=== PATIENT | female | born 1955 | race Caucasian/White ===

== ENCOUNTER 2017-02-22 06:30 | Inpatient (IN) | payer BC ==
--- NOTE | ~2017-02-22 | IDS ---
Interim Discharge Summary [facility] [address] [place]. [address] NAME: ELEAZAR TRUJILLO : 59 STATUS : ADM IN [facility]#: [id number] AGE: 61 ADM/REG DATE : 02/22/17 MR#: [id number] REPORT SERV DATE: 03/08/17 DICTATED BY: JR. OLIVARES WILLIAM JOHN DATE: 03/07/17 REPORT STATUS : Draft TRANSCRIBED BY: PAUL DATE: 03/07/17 ADMISSION DATE: 02/22/2017 DISCHARGE DATE: I have taken care of this patient for the time period from 03/05/2017 through 03/07/2017, but will attempt to recollect events up to this point. WORKING DIAGNOSES: 1. Status post brief pulseless electrical activity on 03/01/2017 with return of spontaneous circulation with brief chest compressions and epinephrine x1. 2. Coronary artery disease/valvular heart disease. 3. Status post coronary artery bypass graft, mitral valve and aortic valve replacement, and tricuspid valve repair on 03/02/2017. 4. Acute blood loss anemia. 5. Hypoxic respiratory failure. 6. Bilateral for pleural effusions. 7. Acute kidney injury, which is resolving. 8. Postop insulin resistance. OPERATIONS/PROCEDURES AND TREATMENTS: 1. During the interim of this summary include chest x-ray on 03/04/2017, which showed venous congestion with slightly increased pulmonary infiltrate, interval removal of Horicon-Jessica catheter and post surgical changes. 2. Chest x-ray on 03/07/2017 with persistent bilateral pleural effusions. CURRENT MEDICATIONS: Please see my daily progress note. EVENTS DURING THE INTERIM OF THIS SUMMARY: Briefly, the patient is a 61-year-old, admitted on 02/22/2017. The patient was originally admitted in [facility] with shortness of breath. She had an abnormal EKG and mildly elevated troponin and abnormal echocardiogram, was subsequently transferred to [facility] where she underwent a cardiac catheterization with right coronary occlusion with left to right collateralization as well as valvular heart disease. She also underwent a BELIA with valvular heart disease. She was seen in consultation by Thoracic Surgery for repair, went on 03/01/2017 in preop anesthesia had brief episode of pulseless electrical activity with return of spontaneous circulation with brief compressions and epinephrine x1. She was intubated taken to the intensive care unit, extubated the same day and subsequently underwent the bypass mitral valve replacement, aortic valve replacement, and tricuspid valve repair on 03/02/2017. She was transferred to the medical floor on 03/04/2017 after extubation. Since that time, the patient has done fairly well without significant events. REGARDING HER PROBLEM LIST: 1. Status post brief pulseless electrical activity. No further events. 2. As to the coronary artery disease, valvular heart disease, and coronary artery bypass graft, mitral valve replacement, aortic valve replacement, tricuspid valve repair done on 03/02/2017 management is per Cardiovascular Thoracic Surgery. They are requesting a Interim Discharge Summary [address] [address] NAME: ELEAZAR TRUJILLO : 59 STATUS : ADM IN [facility]#: [id number] AGE: 61 ADM/REG DATE : 02/22/17 MR#: [id number] REPORT SERV DATE: 03/08/17 DICTATED BY: JR. OLIVARES WILLIAM JOHN DATE: 03/07/17 REPORT STATUS : Draft TRANSCRIBED BY: PAUL DATE: 03/07/17 right thoracentesis tomorrow as the acute blood loss anemia and there have been no further events. 3. Acute kidney injury. This is stable and improving. 4. As to her postop insulin resistance, this has resolved. She is simply on sliding scale insulin. My partner will assume care tomorrow. This patient is being evaluated for placement/rehab at [facility]. We would transfer to [facility] when accepted and okay with Thoracic Surgery. My partner will assume care tomorrow. WEjF/PAUL Jb Olivares Jr, MD / [id number] CC: Jb Olivares Jr, MD
--- NOTE | ~2017-02-22 | IDS ---
Interim Discharge Summary [facility] [address] [place]. [address] NAME: ELEAZAR TRUJILLO : 59 STATUS : ADM IN [facility]#: [id number] AGE: 61 ADM/REG DATE : 02/22/17 MR#: [id number] REPORT SERV DATE: 03/01/17 DICTATED BY: GIOVANNA URIBE DATE: 02/27/17 REPORT STATUS : Draft TRANSCRIBED BY: MODL DATE: 02/27/17 ADMISSION DATE: 02/22/2017 DISCHARGE DATE: HISTORY OF PRESENT ILLNESS: This is a 61-year-old female patient who initially presented to [facility] with worsening short of breath with anasarca. Please see dictated H and P. HOSPITAL COURSE: Please see dictated discharge summary from Dr. Irene. The patient was admitted to hospital over at [facility] and had evaluation for heart failure and was found to have multi-valve problem. Therefore, the patient was transferred to [facility] to get further evaluation with a cardiac catheterization and valve evaluation. The patient had a BELIA at [facility], which showed mitral regurg, atrial regurg, and tricuspid regurg and need to be replaced, and then she had a cardiac catheterization which showed, she had one vessel disease, will need to be bypassed. Seen by Dr. Dudley for valvular heart disease and surgical repair plan and had a preop CT scan and ultrasound of the leg since she had a history of DVT. CTA of the chest and ultrasound of the legs are not showing any acute clotting issues. The case was discussed between Dr. Marsh and Dr. Serra and they decided to go to the surgery together coming Tuesday for three valvular repair/replacement and one bypass surgery. During the weekend, she was kept in the hospital, remains in stable condition. She tolerated all the treatments and did not have any events during the weekend. Again, the patient will be kept in the hospital for planned surgery on Tuesday. EKL/MODL Giovanna Uribe M.D. / [id number] CC: Renato Calderon ALMA S
--- NOTE | ~2017-02-22 | OP ---
Record Of Operation [facility] [address] [place]. [address] NAME: ELEAZAR TRUJILLO : 59 STATUS : ADM IN [facility]#: [id number] AGE: 61 ADM/REG DATE : 02/22/17 MR#: [id number] REPORT SERV DATE: 03/03/17 DICTATED BY: MICHAEL SERRA DATE: 03/02/17 REPORT STATUS : Draft TRANSCRIBED BY: MODL DATE: 03/02/17 DATE OF PROCEDURE: 03/02/2017 PREOPERATIVE DIAGNOSES: 1. Aortic valve insufficiency. 2. Mitral valve stenosis with insufficiency. 3. Tricuspid valve insufficiency. 4. Coronary artery disease. 5. Recent cardiac arrest with pulseless electrical activity and possible anoxic injury. 6. History of deep vein thrombosis with pulmonary emboli. 7. Remote history of Hodgkin lymphoma, status post mantle radiation. 8. Hypothyroidism. 9. Hypertension. 10.Acute on chronic diastolic heart failure. POSTOPERATIVE DIAGNOSES: 1. Aortic valve insufficiency. 2. Mitral valve stenosis with insufficiency. 3. Tricuspid valve insufficiency. 4. Coronary artery disease. 5. Recent cardiac arrest with pulseless electrical activity and possible anoxic injury. 6. History of deep vein thrombosis with pulmonary emboli. 7. Remote history of Hodgkin lymphoma, status post mantle radiation. 8. Hypothyroidism. 9. Hypertension. 10.Acute on chronic diastolic heart failure. 11.Bilateral pleural effusions. PROCEDURES PERFORMED: 1. Urgent aortic valve replacement using a 23 mm pericardial valve (Trifecta). 2. Mitral valve replacement with a 27 mm pericardial valve (Magna Ease) using chordal- sparing technique. 3. Tricuspid valve annuloplasty using a 26 mm annuloplasty ring (MC3 and valvuloplasty). 4. Coronary artery bypass grafting x1, reverse saphenous vein graft placed to the distal right coronary artery. 5. Endoscopic vein harvest, saphenous vein from the right thigh. 6. Transesophageal echocardiography. SURGEON: Michael Serra M.D. ASSISTANTS: Venessa Moore and JERMAIN Duarte. ANESTHESIA: General with Dr. Downey. FEED WEIGHER: Pankaj Hyman MD. Record Of Operation [facility] [address] [facility] [place]. [address] NAME: ELEAZAR TRUJILLO : 59 STATUS : ADM IN [facility]#: [id number] AGE: 61 ADM/REG DATE : 02/22/17 MR#: [id number] REPORT SERV DATE: 03/03/17 DICTATED BY: MICHAEL SERRA DATE: 03/02/17 REPORT STATUS : Draft TRANSCRIBED BY: PAUL DATE: 03/02/17 INDICATIONS: This is a 61-year-old female with a remote history of Hodgkin lymphoma and mantle radiation. She has had previous DVT and PE that was documented in November of this year after an operation for hypothyroidism. She also has a long-standing history of hypothyroidism after radiation. She has had recurrent pleural effusions drained by thoracentesis in the past. Because of repeated presentation with symptoms of congestive heart failure, the patient underwent further evaluation with echocardiography that demonstrated good ventricular function, but with significant mitral valve stenosis with insufficiency, tricuspid valve insufficiency, and aortic valve insufficiency. She further underwent a cardiac catheterization, which demonstrated complete occlusion of the right coronary artery. Her ventricular function was preserved with an ejection fraction greater than 50%. Because of the patient's multiple episodes of congestive heart failure symptoms, we were asked to see the patient for possible urgent valvular repair or replacement and coronary bypass grafting. We discussed this operation with the patient and her family, and after discussing operations, indications, and risks, they wished to proceed. STS predicted mortality in excess of 8%, morbidity mortality greater than 25% were shared with them. The patient was originally planned to have surgery on the . Unfortunately, during sedation, forced placement of central line, she had a PEA arrest. She was given CPR for approximately three to five minutes and intubated. The patient overnight recovered and was extubated last evening. I saw the patient this morning, and neurologically she appeared to be intact. We discussed possible surgery again with the patient and she wished to proceed and this was also discussed with critical care, who was helping to follow the patient and they agreed with operation today. FINDINGS AT OPERATION: 1. Cross-clamp 143 minutes. Total pump time 162 minutes. We used long term solution as cardioplegia. 2. The distal right coronary artery was 2 mm and moderately diseased. A 4 mm RSVG was anastomosed to it with good runoff. 3. The aortic valve had three leaflets. They were mildly thickened. The leaflets did not coapt well in the midportion or central portion of the valve. Coronary anatomy was normal. There did not appear to be any sinus aneurysm formation. 4. The aortic valve was replaced with a 23 mm pericardial valve (Trifecta). 14 Cor-Knots were used to secure the valve in place. 5. The mitral valve was very thickened with fused leaflets. There was also thickening of the chords with tethering or shortening of the chordae tendineae. 6. The valve was replaced using a 27 mm pericardial valve (Magna Ease). We preserved the posterior leaflets. 17 Cor-Knots were used to secure the valve in place. 7. The tricuspid valve was mildly thickened. It was partially debrided and some of the areas of thickening were taken off. There was a small cleft between the septal and posterior leaflets, and this was closed with a single horizontal mattress suture of 5-0 Prolene. An MC3 annuloplasty ring system was used to support and decrease the annular dimensions. 13 Cor-Knots were used to secure this in place. 8. We did ligate and amputate the left atrial appendage. 9. Saphenous vein quality was good and all grafts had good Doppler signal at the end of the case. 10.BELIA demonstrated good left ventricular function. Right ventricular function was mildly Record Of Operation [address] [address] NAME: ELEAZAR TRUJILLO : 59 STATUS : ADM IN [facility]#: [id number] AGE: 61 ADM/REG DATE : 02/22/17 MR#: [id number] REPORT SERV DATE: 03/03/17 DICTATED BY: MICHAEL SERRA DATE: 03/02/17 REPORT STATUS : Draft TRANSCRIBED BY: PAUL DATE: 03/02/17 diminished. Valvular prostheses were all well placed without the perivalvular leak. There was mild tricuspid insufficiency at the conclusion of the operation. CVP had dropped from 16 to 6 between mitral valve repair. 11.There were large bilateral pleural effusions that were evacuated. PATHOLOGIC SPECIMENS: Include left atrial appendage and portion of the aortic valve leaflets and portion of the anterior leaflet of the mitral valve. DESCRIPTION OF PROCEDURE: The patient was brought to the operating suite where general anesthesia was induced and airway secured with an endotracheal tube. Lines secured by Anesthesia. Glez catheter was already in place. BELIA probe was placed by Dr. Downey and examination carried out in my attendance. Findings are discussed above. The saphenous vein was harvested from the right thigh using endoscopic technique. Briefly, the vein was cut directly down upon through a 2 cm incision placed at the medial aspect of the right knee. Then, using VasoView trocars, the vessel was dissected from the surrounding subcutaneous tissue and fat. The side branches were identified, ligated, and divided with cautery. Once adequate length of vein had been dissected, a counter incision was made up in the groin, where the vein was ligated, divided, and brought out through the knee incision. The vein quality was good. The leg was made hemostatic and closed in layers with absorbable suture and skin closed in subcuticular fashion. Next, a midline sternal incision was made and the sternum opened with a saw. The John retractor was placed. There was a large right pleural effusion that was evacuated. Heparin was then administered by Anesthesia. Pericardium was opened from the innominate vein. The diaphragm was T'd and tacked to the side of the chest wall. A large, but somewhat smaller left pleural effusion was also evacuated. Lines were passed on the field for cardiopulmonary bypass and cleared of air. Cannulation pursestring sutures were placed and cannulation was carried out in routine manner. Two single stage venous cannula was placed in the SVC and IVC respectively. When all was in readiness, the patient was placed on cardiopulmonary bypass. The distal targets were marked out on the heart as described in the findings. Then, the aorta was crossclamped. Initial and only dose of cold crystalloid cardioplegia was given in antegrade fashion. Following completion of the dose of cardioplegia, the heart was gently retracted towards the surgeon. The left atrial appendage was grasped. It was then ligated and amputated at its base using thoracoscopic stapler and 60 mm staple load. The heart was then positioned for the distal RCA graft. Arteriotomy was made and the vein graft trimmed and anastomosed to it with 7-0 Prolene. Additional long term cardioplegia solution was given down the vein graft. The vein graft was measured to the ascending aorta, where it was divided. We then turned our attention towards the mitral valve. The interatrial groove of [place] was dissected. A left atriotomy was made and the John retractor apparatus was assembled and positioned allowing good visualization of mitral valve. The left atrium did not appear enlarged. The mitral valve was examined. It was a very thickened valve, especially the Record Of Operation [facility] [address] [place]. [address] NAME: ELEAZAR TRUJILLO : 59 STATUS : ADM IN PAT#: [id number] AGE: 61 ADM/REG DATE : 02/22/17 MR#: [id number] REPORT SERV DATE: 03/03/17 DICTATED BY: MICHAEL SERRA DATE: 03/02/17 REPORT STATUS : Draft TRANSCRIBED BY: MODL DATE: 03/02/17 anterior leaflet. There were some calcifications around the annulus, but this was only moderate. There was shortening of the chordae and fusion of thickened chordae. I decided to go ahead and resect the anterior leaflet of the mitral valve and its chordal attachments. We preserved the posterior leaflet of the mitral valve and their chordal attachments. Once the resection of leaflet tissue had been performed, valve annulus were heavily calcified and was debrided. We then irrigated the left ventricle and atrium copiously with iced saline to remove any particulate matter. The valve was then sized and a 27-mm pericardial valve was selected (Magna Ease). Interrupted pledgeted sutures of 2-0 Tycron were placed circumferentially about the mitral valve annulus. The pledgets were on the ventricular side. The sutures were passed through the sewing cuff of the valve prosthesis. This was lowered into position and each sutures were individually secured and divided using a Cor- Knot device. A total of 17 Cor-Knots were utilized. Following completion of the valve insertion, it was inspected and appeared to be well seated. Then, an LV vent was placed through the right superior pulmonary vein and directed through the valve prosthesis into the ventricle. The left atriotomy was then closed in a two-layer fashion with running pledgeted suture of 4-0 Prolene. We then turned our attention towards the aortic valve. A hockey-stick type aortotomy incision was made. The aortic valve was inspected and as described above, it was mildly thickened and had a mildly dilated annulus with failure of good coaptation. I felt the valve most likely had suffered radiation injury or damage. We resected the valve leaflets. Coronary anatomy was normal. We sized the valve and a 23-mm pericardial valve was selected. Interrupted pledgeted sutures of 2-0 Tycron were placed circumferentially about the aortic valve annulus. Pledgets were on the ventricular side. Sutures were passed through the sewing cuff of the valve prosthesis. This was lowered into position. Each sutures were individually secured and divided using a Cor-Knot device. A total of 14 Cor-Knots were utilized. Once the valve was implanted, it appeared to be well seated. Both right and left main coronary ostia were without obstruction. The aortotomy incision was then closed in a two-layer fashion with running pledgeted suture of 5-0 Prolene. We then turned our attention towards the tricuspid valve. Polyester tapes were placed around the SVC and IVC cannulas and these were secured. An oblique right atriotomy incision was made along the right free wall. The tricuspid valve was exposed. The leaflets were mildly thickened. There was a small area of peel on the septal and posterior leaflets that was debrided. I felt that the valve could possibly be saved with an annuloplasty ring. The valve was sized and a 26 mm MC3 annuloplasty ring system was selected. Interrupted nonpledgeted sutures were placed circumferentially about the tricuspid valve annulus with the exception of the region on the septal annulus, where the conduction fibers run. The sutures were then passed through the sewing cuff of the annuloplasty ring, size 26 mm. The ring was lowered into position. Each of the sutures were individually secured and divided using a Cor-Knot device. A total of 13 Cor-Knots were utilized. At this point, iced saline injection into the right ventricle demonstrated a small leak that appeared to emanate from a small cleft between the septal and posterior leaflets. This was closed with a single 5-0 Prolene suture placed in a horizontal mattress fashion. Again, testing with iced saline demonstrated a marked improvement in valve insufficiency. Warming was begun. The right atriotomy was then closed in a two-layer fashion with running Record Of Operation [facility] [address] [facility] [place]. [address] NAME: ELEAZAR TRUJILLO : 59 STATUS : ADM IN [facility]#: [id number] AGE: 61 ADM/REG DATE : 02/22/17 MR#: [id number] REPORT SERV DATE: 03/03/17 DICTATED BY: MICHAEL SERRA DATE: 03/02/17 REPORT STATUS : Draft TRANSCRIBED BY: MODL DATE: 05/17/17 non-pledgeted suture of 6-0 Prolene. The right coronary artery bypass graft was then measured to the ascending aorta, where it was divided. A 4.5 mm punch aortotomy was made. The proximal end of the vein graft was anastomosed to this site with a running suture of 6-0 Prolene. The patient was placed in Trendelenburg. The ascending aorta and left ventricle were de- aired and the aortic cross-clamp removed. The heart was allowed to rest on cardiopulmonary bypass. The heart was cardioverted using 10 joules of energy in the internal paddles x1. Ventricular and atrial pacing wires were placed and these were used for AV pacing. Ventilations were begun and low-dose inotropic agents were started. When the heart demonstrated good contractility, it was allowed to fill and eject. De-airing was monitored with BELIA. When de-airing was completed, the LV vent was removed and these pursestring sutures tied. The patient was weaned from cardiopulmonary bypass with inotropic support. The venous cannulas were removed and these pursestring sutures were secured and later tied. The ascending aortic vent had been removed and these pursestring sutures tied and reinforced. BELIA examination after coming off bypass demonstrated good left ventricular function and improved right ventricular function. The aortic and mitral prostheses were well seated without perivalvular leak. There was very mild tricuspid valve insufficiency. Protamine was administered by Anesthesia and following a period of hemodynamic stability, the aortic cannula was removed and these pursestring sutures were tied and reinforced. The patient continued to do well and chest irrigated copiously with saline. Meticulous hemostasis was obtained. Hemasorb was placed along the cut edge of the sternum. Once the hemostasis was assured, the pericardium was draped over the anterior surface of the heart and tacked into position. Doppler demonstrated excellent flow through the graft to the right coronary artery. Chest tubes were placed and the sternum reapproximated with eight sternal wires. The clavipectoral fascia and linea alba closed with #1 Stratafix. The subcutaneous tissue closed with Stratafix and skin closed in subcuticular fashion. It should be noted that there was a large amount of abdominal ascites noted. The peritoneum was not open. The patient tolerated the procedure well. There were no complications. Sponge and needle counts were correct. DISPOSITION: The patient was left intubated, sedated, and transported to the intensive care unit in a stable paced condition. Record Of Operation [facility] [address] [place]. [address] NAME: ELEAZAR TRUJILLO : 59 STATUS : ADM IN [facility]#: [id number] AGE: 61 ADM/REG DATE : 02/22/17 MR#: [id number] REPORT SERV DATE: 03/03/17 DICTATED BY: MICHAEL SERRA DATE: 03/02/17 REPORT STATUS : Draft TRANSCRIBED BY: PAUL DATE: 03/02/17 GOYO/PAUL Michael Serra M.D. / [id number] CC: MD Giovanna Harmon M.D. Vimal Ramjee, MD
--- NOTE | ~2017-02-22 | OP ---
Record Of Operation [facility] [address] [place]. [address] NAME: ELEAZAR TRUJILLO : 59 STATUS : REG REF PAT#: [id number] AGE: 61 ADM/REG DATE : 02/22/17 MR#: [id number] REPORT SERV DATE: 02/22/17 DICTATED BY: PANKAJ REY DATE: 02/22/17 REPORT STATUS : Draft TRANSCRIBED BY: MODL DATE: 02/22/17 DATE OF PROCEDURE: 02/22/2017 PROCEDURE TYPE: Elective BELIA. INDICATION: Valvular heart disease. DESCRIPTION: All questions were answered and informed consent was obtained. Anesthesia administered sedation. Upon successful sedation, the transesophageal probe was inserted without complication. Salient echocardiographic windows were obtained, details below. There were no complications from the study. ECHOCARDIOGRAPHIC FINDINGS: 1. Grossly normal left ventricular systolic function, with an estimated ejection fraction of about 55%. 2. Mildly decreased right ventricular systolic function. 3. Abnormal septal motion noted (basal dyskinesia). 4. Rheumatic mitral tricuspid and aortic valves are noted on 2D assessment. 5. Color Doppler demonstrates at least moderate, probably severe mitral regurgitation on assessment of the pulmonary veins, mild systolic pulmonary vein flow reversal is noted in the left upper pulmonary veins. 6. Moderate to severe eccentric tricuspid regurgitation is seen on color Doppler assessment. 7. Probably moderate AR, possibly severe. Trivial diastolic reversals are noted in the aortic arch on spectral Dopplers assessment; however, a collective findings of vena contracta, and color Doppler area all suggest more moderate than severe AR. 8. Large left pleural effusion is seen. 9. 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 VR/MODL Pankaj Rey MD / [id number] CC: Renato Calderon
--- NOTE | ~2017-02-22 | CN ---
Consultation Report [facility] [address] [place]. [address] NAME: ELEAZAR TRUJILLO : 59 STATUS : ADM IN PAT#: [id number] AGE: 61 ADM/REG DATE : 02/22/17 MR#: [id number] REPORT SERV DATE: 02/23/17 DICTATED BY: EFRA ESPAÑA DATE: 02/23/17 REPORT STATUS : Draft TRANSCRIBED BY: MODL DATE: 02/23/17 CONSULTATION DATE OF CONSULTATION: 02/23/2017 REASONS FOR CONSULTATION: Mitral and aortic valve disease and consideration for surgical repair/replacement. BRIEF HISTORY: This is a 61-year-old white female who was admitted to [facility] on 02/20/2017 with worsening shortness of breath and dyspnea with exertion. She had a history of hypertension, coronary artery disease, Hodgkin lymphoma, DVT and PE in November of this year after a surgery, as well as hypothyroidism. She was seen by Dr. Carmen and arrangements were made for her to undergo thoracentesis. She had that performed on 02/21/2017 with approximately 1700 mL removed. Further workup was ordered and she was noted to have acute congestive heart failure suspected to be both right and left-sided with multivalvular disease. Her EF was preserved, but she did have at least moderate to severe regurgitation of the aortic valve as well as a rheumatic-appearing mitral valve with mild-to moderate regurgitation and severe tricuspid regurgitation. She underwent BELIA on 02/22/2017 and was noted to have an EF of 55% with probable moderate AR, possibly even severe with a large left pleural effusion, and probably at least moderate to severe mitral regurgitation and tricuspid regurgitation. Cardiac catheterization has been performed, which showed a totally occluded right coronary artery with left to right collateralization. Because of her significant valvular disease, she was admitted to the hospital for further medical management and potential surgical valve repair. 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 PAST SURGICAL HISTORY: Includes splenectomy and hysterectomy. ALLERGIES: NONE. HOME MEDICATIONS: Include Coreg 3.125 mg p.o. twice daily, Lasix 40 mg p.o. twice daily, levothyroxine 88 mcg p.o. daily, potassium 10 mEq p.o. daily, Cardia XT 180 mg p.o. daily, Nexium 40 mg p.o. daily, ProAir two puffs inhaled every four hours as needed for shortness of breath, Singulair 10 mg p.o. daily as needed for allergic rhinitis, Augmentin 875 mg p.o. twice daily, Symbicort 160/4.5 two puffs inhaled daily, Celexa 10 mg p.o. daily. SOCIAL HISTORY: The patient is a lifelong nonsmoker. She rarely drinks alcohol with an average drink every one to two months. She lives in [place], [place], and has a son who is very supportive. 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 Consultation Report [address] [place]. [address] NAME: ELEAZAR TRUJILLO : 59 STATUS : ADM IN [facility]#: [id number] AGE: 61 ADM/REG DATE : 02/22/17 MR#: [id number] REPORT SERV DATE: 02/23/17 DICTATED BY: EFRA ESPAÑA DATE: 02/23/17 REPORT STATUS : Draft TRANSCRIBED BY: PAUL DATE: 02/23/17 FAMILY HISTORY: Significant for father having a myocardial infarction resulting in and her mother of pneumonia after complications with sepsis. REVIEW OF SYSTEMS: Significant for shortness of breath, edema, reflux thyroid dysfunction. Complete 12-point review of systems done, all other systems negative except the above-mentioned pertinent positives in history of present illness. PHYSICAL EXAMINATION: GENERAL: A 61-year-old white female, alert, in no acute distress and appearing her stated age. CONSTITUTIONAL: Vital signs are blood pressure 137/69, oxygen saturation 95%, afebrile, pulse 97, respirations 20, weight 99.3 kilos, height 175 cm. HEAD, EARS, EYES, NOSE, AND THROAT: Normocephalic, atraumatic. Pupils equal, round and reactive to light. Ears, nose, and throat without drainage. No exudate. Mucous membranes moist. NECK: Supple. No lymphadenopathy. JVD or bruits noted. Trachea midline. No obvious goiter. CHEST: Symmetrical bilateral movement. No obvious chest wall deformities noted. CARDIOVASCULAR: Revealed regular rate and rhythm. S1, S2 with a systolic murmur. RESPIRATORY: Decreased breath sounds in the left chest, otherwise clear. There is no use of accessory muscles noted. GASTROINTESTINAL: Abdomen is soft, nontender, nondistended with positive bowel sounds in all four quadrants. No hepatosplenomegaly noted. : The patient voids without difficulty, otherwise deferred. MUSCULOSKELETAL: Without obvious kyphosis or scoliosis noted. There is normal range of motion in all four extremities. No significant bony abnormalities noted. NEURO: No focal neurologic deficits noted. The patient is alert and oriented x3. All 12 cranial nerves intact. EXTREMITIES: Without clubbing or cyanosis. There is 1 to 2+ edema in bilateral lower extremities. There is an erythematous area in the left anterior calf. HEMATOLOGIC/LYMPHATIC: Without any obvious petechiae or ecchymosis noted. There is no supraclavicular, axillary, or cervical lymphadenopathy noted. PSYCH: Normal mood, affect, and pleasant. Answers all questions appropriately. DATA: BELIA performed 02/22/2017 showing left ventricular ejection fraction of 55% with mild decrease in right ventricular systolic function. There is basilar dyskinesia. There is at least moderate and probably severe mitral regurgitation and moderate to severe tricuspid regurgitation. There is also moderate and possibly severe aortic regurgitation. There is a large left pleural effusion. The mitral valve appeared rheumatic with mild mitral stenosis with a mean gradient of 8 mmHg. Cardiac cath performed 02/22/2017 showing a chronic total occlusion of the right coronary artery with [id number] collateralization. There is no other flow-limiting disease noted. Consultation Report [address] [address] NAME: ELEAZAR TRUJILLO : 59 STATUS : ADM IN [facility]#: [id number] AGE: 61 ADM/REG DATE : 02/22/17 MR#: [id number] REPORT SERV DATE: 02/23/17 DICTATED BY: EFRA ESPAÑA DATE: 02/23/17 REPORT STATUS : Draft TRANSCRIBED BY: MODBatsheva DATE: 02/23/17 BMP dated 02/23/2017, sodium 137, potassium 4.3, BUN 20, creatinine 0.89, glucose 129. White blood count 8.8, hemoglobin 10.3, hematocrit 33.8, platelets 328. UA dated 02/20/2017 showing a large amount of blood and moderate leukocyte esterase, many white blood cells with moderate bacteria, urinary culture negative at 24 hours. Chest x-ray, 02/23/2017, showing continued basilar atelectasis with small right and small to moderate left effusion. CT of the chest without contrast performed 02/23/2017 showing the ascending aorta to measure 3 x 2.5 cm in size. There is small left and moderate right pleural effusion with lower lobe compressive subsegmental atelectasis. There is mild cardiomegaly without evidence of aortic stenosis and what appears to be a three-cusp aortic valve present. Bilateral lower extremity ultrasounds are pending. STS risk score not performed secondary to likely being multiple valve replacements, which does not fit the criteria. PROBLEM LIST: 1. Congestive heart failure. 2. Aortic valve regurgitation, moderate to severe without stenosis, trileaflet valve. 3. Severe tricuspid regurgitation likely secondary to incomplete coaptation. 4. Rheumatic mitral valve with moderate regurgitation, mean valve area 3.0 sq cm with mean gradient 8 mmHg. 5. Bilateral pleural effusions. 6. Ascites. 7. Coronary artery disease with a chronic total occlusion in the right coronary artery with collateralization. 8. Recent DVT with PE. 9. Hypothyroidism. 10.Obesity. 11.Shortness of breath. 12.Dyspnea with exertion. 13.Hypertension. 14.History of Hodgkin disease with mantle cell radiation, . 15.Gastroesophageal reflux disease. IMPRESSION/PLAN: A 61-year-old white female with bilateral pleural effusions presenting with shortness of breath and found to have congestive heart failure. Echocardiogram shows significant valvular disease involving aortic mitral and tricuspid valve. She still has a preserved left ventricular ejection fraction of 55% to 60%. She also has an occluded right coronary artery with collateralization. She did recently have a hysterectomy and postoperatively had a DVT and pulmonary embolus for which she has been on Xarelto. Repeat CT imaging today shows no significant burden of clot within the pulmonary artery and no significant obvious calcification of her aorta from her previous mantle cell radiation. She did have compressive atelectasis from her pleural effusions, however, lower extremity Consultation Report [facility] [address] [place]. [address] NAME: ELEAZAR TRUJILLO : 59 STATUS : ADM IN PAT#: [id number] AGE: 61 ADM/REG DATE : 02/22/17 MR#: [id number] REPORT SERV DATE: 02/23/17 DICTATED BY: EFRA ESPAÑA DATE: 02/23/17 REPORT STATUS : Draft TRANSCRIBED BY: PAUL DATE: 02/23/17 Dopplers are pending to see if there is any residual clot burden in her lower extremities. She does have a fair amount of edema in her legs. I think we should continue to maximize her medically with diuretics and medications, and at some point in the very near future, consider surgical repair of her valves. This may be very difficult to do given her previous mantle cell radiation and likely severe adhesions and scarring secondary to that within the chest. We will wait further clinical test as well as medical maximization of her, and Dr. España will advise further the appropriate timing of surgery. DICTATED BY: PRISCILA Simon/PAUL Efra España MD / [id number] CC: Renato Calderon ALMA S
--- NOTE | ~2017-02-22 | IDS ---
Interim Discharge Summary [facility] [address] [place]. [address] NAME: SUZAN SOLANO : 59 STATUS : ADM IN [facility]#: [id number] AGE: 61 ADM/REG DATE : 02/22/17 MR#: [id number] REPORT SERV DATE: 03/04/17 DICTATED BY: NATALIA STALEY DATE: 03/04/17 REPORT STATUS : Draft TRANSCRIBED BY: PAUL DATE: 03/04/17 ADMISSION DATE: 02/22/2017 DISCHARGE DATE: This interim discharge summary will cover the time from which the patient was transition from the floor to the Anesthesia Block Room at which point, she had a cardiac arrest and until her transfer back to the [address] [place] [address] today. HISTORY OF PRESENT ILLNESS: Suzan Solano is a pleasant 61-year-old lady with multivalvular disease and coronary artery disease, who is slated for valve replacement and coronary artery bypass grafting with Dr. Serra. She was admitted to the Hospital Medicine Service, and was taken to the Pre Anesthesia Area in preparation to move her to Surgery, at which point, she received some sedation as her lines were being placed. Unfortunately, she developed PEA arrest. Please see my detailed documentation from the day of her Code Blue for additional details of that event. She was moved on a ventilator to CVICU, where she recovered from her code event, and was ultimately extubated later that day. She was taken to the operating room the following day by Dr. Serra, where she underwent replacement of her aortic and mitral valves, repair of her tricuspid valve and coronary artery bypass grafting which she tolerated well. She was extubated the following morning, and has been doing quite well postoperatively. She is now tolerating nasal oxygen and her chest tubes have been pulled, she has been up in a chair for most of the day, and she is moving back to the [address] [place] [address] to continue recovering from surgery. Please see my daily progress note for detailed problem list including plans. She has morning labs ordered for tomorrow and the hospitalist navigator has been notified of her return to the floor. STEVEN/PAUL Natalia Staley MD / [id number] CC: MD ROSAMARIA Harmon
--- NOTE | ~2017-02-22 | CN ---
Consultation Report [facility] [address] [place]. [address] NAME: ELEAZAR TRUJILLO : 59 STATUS : ADM IN PAT#: [id number] AGE: 61 ADM/REG DATE : 02/22/17 MR#: [id number] REPORT SERV DATE: 02/23/17 DICTATED BY: CARLO HERRERA DATE: 02/23/17 REPORT STATUS : Draft TRANSCRIBED BY: PAUL DATE: 02/23/17 CONSULTATION NOTE DATE OF CONSULTATION: 02/23/2017 ATTENDING GLUE SPRAYER: Sung Carmen M.D. REASON FOR CONSULTATION: Significant tricuspid aortic and mitral valve regurgitation, single vessel chronic total occlusion of the right coronary artery, consideration for surgical therapy. 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 Her prior medical history significant for Hodgkin lymphoma at age 25 in 1980, and at that time as part of her therapy underwent splenectomy and mantle radiation to her chest. She had no further problems until approximately 15 years ago when she developed shortness of breath, and was diagnosed with heart failure. Since then, she has been maintained on diuretic therapy with good functional status, and intermittent swelling of her lower extremities that responds well to changes in diuretic therapy. Recently, she underwent laparoscopic hysterectomy in October. At that time, she noted worsening edema of her lower extremities and shortness of breath. She was subsequently diagnosed with DVT and pulmonary emboli in November, and has continued to be short of breath really since October of this year. Despite therapy, she denies any real improvement in her overall functioning and/or shortness of breath or lower extremity edema. She has been treated with Xarelto for her DVT and PE. Recently, she presented to [facility] with shortness of breath. At [facility], she had abnormal EKG and mildly elevated troponin I, abnormal echocardiogram. She was transferred to [facility] and today underwent coronary arteriogram, which demonstrated elevated LVEDP of 27, and single vessel coronary artery disease with chronic total occlusion of the right coronary artery. In addition, BELIA done yesterday shows normal left ventricular systolic function with ejection fraction of 55%, abnormal septal motion, mildly decreased right ventricular systolic function, and at least moderate probably severe mitral regurgitation with pulmonary vein systolic flow reversal. There is also moderate eccentric tricuspid valve regurgitation and moderate aortic insufficiency. Also has history of hypertension and recent cat scratch of the left lower extremity with cellulitis, treated with antibiotic therapy. PRIOR MEDICAL HISTORY: Asthma, on maintenance steroid, inhaler, and long-acting beta- agonist; gastroesophageal reflux disease. PRIOR SURGICAL HISTORY: Significant for recent hysterectomy and splenectomy in 1980. Consultation Report [address] [place]. [address] NAME: ELEAZAR TRUJILLO : 59 STATUS : ADM IN [facility]#: [id number] AGE: 61 ADM/REG DATE : 02/22/17 MR#: [id number] REPORT SERV DATE: 02/23/17 DICTATED BY: CARLO HERRERA DATE: 02/23/17 REPORT STATUS : Draft TRANSCRIBED BY: PAUL DATE: 02/23/17 ALLERGIES: NONE KNOWN. MEDICATIONS: Carvedilol 3.125 mg p.o. b.i.d., furosemide 40 mg p.o. b.i.d., levothyroxine 88 mcg p.o. daily, potassium chloride 10 mEq p.o. daily, Cartia XT 180 mg p.o. daily, Nexium 40 mg p.o. daily, albuterol inhaler two puffs every 4 hours as needed, Singulair 10 mg p.o. daily, fluticasone/vilanterol 100/25 mcg inhaler one puff daily, Augmentin 875 mg p.o. q.12 hours for her cat bite, Symbicort 160/4.5 two puffs inhaled daily, citalopram 10 mg p.o. daily. FAMILY HISTORY: Significant for coronary disease in father. SOCIAL HISTORY: She is , employed by [employer] She has two grown sons. She rarely drinks alcohol and is a nonsmoker. Denies any illicit drug use. REVIEW OF SYSTEMS: GENERAL: She reports diminished exercise tolerance, shortness of breath with minimal exertion and walking on level surface. ENT: Negative. RESPIRATORY: Positive for shortness of breath, asthma, maintenance and rescue inhaler use. Negative for hemoptysis. Negative for chronic cough or wheezing. CV: As above. She reports four-pillow orthopnea. GI: Positive for gastroesophageal reflux. : As above. Negative for any kidney stones, renal insufficiency, refractory urinary tract infections, or incontinence. HEME/ONC: Positive for DVT and PE, has been on NOAC. Positive for her prior Hodgkin lymphoma. ENDOCRINE: Negative for diabetes, positive for thyroid insufficiency, on thyroid replacement therapy. MUSCULOSKELETAL: Positive for scoliosis. SKIN, HAIR, NAILS: Negative. PHYSICAL EXAMINATION: GENERAL: She is a pleasant overweight white female, in no acute distress. Her height is 175.26 cm, weight 99.33 kg giving her BMI of 32.33. VITAL SIGNS: Blood pressure is 137/69, temperature 98.3, pulse 95, respirations 22, saturation 95% on room air. HEENT: Normocephalic, atraumatic. Pupils are equal, round, reactive to light and accommodation. Sclerae are clear, conjunctivae pink. Oral and buccal mucosa are pink and moist, teeth in good condition. NECK: Supple with significant cervicothoracic kyphosis. No carotid bruits, no jugular venous distention. CHEST: Diminished breath sounds in both lung bases, no use of accessory muscles, no chest wall tenderness. She has thoracic kyphoscoliosis. BREASTS: Not examined. CV: Regular rate and rhythm with aortic systolic murmur and gallop rhythm. She has Consultation Report [address] [place]. [address] NAME: ELEAZAR TRUJILLO : 59 STATUS : ADM IN [facility]#: [id number] AGE: 61 ADM/REG DATE : 02/22/17 MR#: [id number] REPORT SERV DATE: 02/23/17 DICTATED BY: CARLO HERRERA DATE: 02/23/17 REPORT STATUS : Draft TRANSCRIBED BY: MODBatsheva DATE: 02/23/17 palpable symmetric central peripheral pulses, no clubbing or cyanosis. She has significant lower extremity edema at least 2+ extending up above her knees. I do not see any varicosities. ABDOMEN: Soft, obese, nontender with normoactive bowel sounds. No hepatosplenomegaly. /RECTAL: Declined. MUSCULOSKELETAL: Significant cervicothoracic kyphoscoliosis as mentioned above. NEUROLOGIC: She is alert, oriented, to day, date, place, and situation. No focal neurologic deficits. No tremors. Speech is clear and fluent. SKIN, HAIR, AND NAILS: No lesions, masses, or rashes. DATA: As above. Her current labs show sodium 137, potassium 4.3, chloride 101, CO2 of 29, BUN 20, creatinine 0.89, and nonfasting glucose 129. Urinalysis is unremarkable. CBC shows WBC 8.8, mild anemia of 10.3 g of hemoglobin and 33.8 hematocrit, and platelets 328,000. Her EKG shows a sinus rhythm with low-voltage QRS. IMPRESSION: 1. Single-vessel coronary artery disease with chronic total occlusion of the right coronary artery. 2. Moderate aortic insufficiency. 3. Moderate tricuspid insufficiency. 4. Moderate to severe mitral insufficiency. 5. Bilateral pleural effusions. 6. Preserved left ventricular function with ejection fraction 55%. 7. History of mantle radiation, status post Hodgkin lymphoma. 8. Recent deep venous thrombosis and pulmonary embolism. 9. Left lower extremity cellulitis, treated with antibiotic therapy. 10.Chronic immunosuppression, status post splenectomy. PLAN: We discussed with the patient the possibility of aortic valve replacement, mitral and tricuspid valve repairs or replacements, and single-vessel coronary artery bypass grafting. We talked about the usual perioperative course, indications, benefits, and risks. Specific risks include, but are not limited to things such as bleeding, need for blood or blood product transfusion and their attendant risks, infection including deep sternal infection, mediastinitis, damage to the kidneys including kidney failure, dialysis, damage to the liver, the lungs, heart attack, stroke, abnormal heart rhythm, need for pacemaker, and even . Using Society of Thoracic Surgeons database does not give adequate fit for the proposed surgical intervention, but using proposed mitral valve replacement and coronary artery bypass grafting, predicted risk of mortality was 5.339%, any morbidity or mortality at 33.9%. Certainly with the addition of aortic valve and tricuspid valve surgeries risks would be elevated. The patient is concerned about being able to get back to work and resume her usual lifestyle and understands that assuming that surgery went well, she likely would have several months of recovery and rehabilitation. She also understands that her valvular disease is likely to progress in the absence of any surgical therapy. We will discuss with attending, and he will have further conversation with her and we will make further plans. Consultation Report [facility] [address] [place]. [address] NAME: ELEAZAR TRUJILLO : 59 STATUS : ADM IN [facility]#: [id number] AGE: 61 ADM/REG DATE : 02/22/17 MR#: [id number] REPORT SERV DATE: 02/23/17 DICTATED BY: CARLO HERRERA DATE: 02/23/17 REPORT STATUS : Draft TRANSCRIBED BY: MODBatsheva DATE: 02/23/17 We appreciate very much the opportunity to be involved in the care of this interesting and pleasant patient. MSL/ALEXYL Carlo Herrera, N.P. / [id number] CC: Renato Calderon Alma S
--- NOTE | ~2017-02-22 | DS ---
Discharge Summary [facility] [address] [place]. [address] NAME: ELEAZAR TRUJILLO : 59 STATUS : ADM IN [facility]#: [id number] AGE: 61 ADM/REG DATE : 02/22/17 MR#: [id number] REPORT SERV DATE: 03/10/17 DICTATED BY: GIOVANNA URIBE DATE: 03/10/17 REPORT STATUS : Draft TRANSCRIBED BY: MODL DATE: 03/10/17 ADMISSION DATE: 02/22/2017 DISCHARGE DATE: 03/10/2017 DISCHARGE DIAGNOSES: 1. 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 2. Status post tricuspid valve repair. 3. Post CABG x1. 4. Both pleural effusion present on admission, status post right thoracentesis. 5. Postop anemia. 6. 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 DIRECTOR VETERINARY: 1. Dr. Hyman. 2. Dr. Marsh. 3. Dr. Serra. 4. Critical Care Management. HISTORY OF PRESENT ILLNESS: This is a 61-year-old female patient, initially presented to [facility] with short of breath on 02/19/2017. Please see dictated H and P and also please see dictated interim discharge summary from Dr. Irene. HOSPITAL COURSE: The patient was hospitalized with heart failure. Over the [facility] had a finding of a valvular heart disease, multivalve's. The patient was transferred to [facility] to get further cardiac evaluation for the coronaries and valves. Had a BELIA done with Dr. Hyman, which showed significant three-valve disease including aortic valves, mitral valve, and also tricuspid regurgitation. Please see dictated consultation note from Dr. Hyman. She had a cardiac catheterization which showed one-vessel disease. After her problems had been identified to need to have surgical consultation, so Cardiothoracic Surgery team was consulted. After the discussion, the patient was taken to the OR for valvular replacement, and repair, and coronary bypass on 03/02/2017. Please see dictated interim discharge summary from Dr. Zambrano and Dr. Olivares. The patient has been having uneventful recovery except bilateral profusion. She has been on high dose diuretics and was refractory to diuretics. Therefore, the patient was given the right side thoracentesis, and improved, and she has kept making negative I's and O's and improving. She is able to ambulate with minimal assistance and her decision for disposition was made to go to acute rehab at [facility]. Overall, the patient has been improving and stable hospitalization maximized inpatient benefit. The patient will be discharged home at [facility]. DISCHARGE MEDICATIONS: 1. Continue vitamin C once a day. 2. Aspirin 81 mg once a day. Discharge Summary [address] [address] NAME: ELEAZAR TRUJILLO : 59 STATUS : ADM IN PAT#: [id number] AGE: 61 ADM/REG DATE : 02/22/17 MR#: [id number] REPORT SERV DATE: 03/10/17 DICTATED BY: GIOVANNA URIBE DATE: 03/10/17 REPORT STATUS : Draft TRANSCRIBED BY: PAUL DATE: 03/10/17 3. Lipitor 40 mg once at bedtime. 4. Amiodarone 200 mg once a day until 04/08. 5. Bumex 2 mg once a day. 6. Celexa 10 mg once a day. 7. Ferrous sulfate 300 mg twice a day. 8. Levothyroxine 88 mcg once a day. 9. Singulair 10 mg once a day. 10.Prinivil 2.5 mg once a day. 11.Three doses of Zaroxolyn 2.5 every day. 12.Lopressor 25 mg twice a day. 13.Senokot once a day. 14.Potassium 40 mEq twice a day. 15.Coumadin 2 mg once at nighttime. 16.ProAir as needed. 17.Singular twice a day. 18.Cartia was discontinued. DISPOSITION: The patient is discharged to [facility] for acute rehab. TIME SPENT: More than 30 minutes in discharge coordination. DICTATED BY: Renato Calderon/PAUL Giovanna Uribe M.D. / [id number] CC: Giovanna Uribe M.D.
[~2017-02-22 06:30] MED LIST: ASAB PO; AUG875 PO; BREO ELLIPTA INH; CARTIA XT180 MG/24 PO; CELEXA10 PO; COREG3 PO; KLOR-CON 1010 MEQ PO; L40 PO; LEVOTHYROXIN88 MCG PO; NEXIUM40 PO; PROAIRRESP INH; SINGULAIR1 PO; SYMBICORT 160/41 INH INH; XARELTO20 MG PO
[2017-02-23 05:30] LABS: BASOPHILS 0.9 %; BASOPHILS ABSOLUTE 0.08 10/3/uL (0.0-0.16); EOSINOPHILS 2.5 %; EOSINOPHILS ABSOLUTE 0.22 10/3/uL (0.0-0.53); HEMATOCRIT 33.8 % (36.0-48.0); HEMOGLOBIN 10.3 g/dL (12.0-16.0); IMMATURE GRANULOCYTES 0.1 %; IMMATURE GRANULOCYTES ABSOLUTE 0.01 10/3/uL (0.0-0.11); LYMPHOCYTES 13.5 %; LYMPHOCYTES ABSOLUTE 1.18 10/3/uL (0.67-4.30); MEAN CORPUS HGB CONC 30.5 g/dL (32.0-36.0); MEAN CORPUSCULAR HEMOGLOB 22.5 pg (26.0-34.0); MONOCYTES 15.5 %; MONOCYTES ABSOLUTE 1.36 10/3/uL (0.21-1.20); NEUTROPHILS 67.5 %; PLATELET COUNT 328 10/3/uL (150-400); RBC DISTRIBUTION WIDTH 19.3 % (12.0-16.0); RED CELL COUNT 4.57 10/6/uL (4.0-5.6); WHITE BLOOD CELLS 8.8 10/3/uL (4.5-10.5)
[2017-02-23 05:31] LABS: MANUAL DIFF NO %
[2017-02-23 05:34] LABS: CHLORIDE, SERUM 101 MMOL/L (96-112); CO2 (CARBON DIOXIDE) 29 MMOL/L (24-34); CREATININE 0.89 MG/DL (0.55-1.02); GFR AFRICAN AMERICAN 82 ML/MIN (>=60); GFR NON AFRICAN AMERICAN 71 ML/MIN (>=60); POTASSIUM, SERUM 4.3 MMOL/L (3.5-5.3); SODIUM, SERUM 137 MMOL/L (135-148)
[2017-02-23 05:39] LABS: BUN (BLOOD UREA NITROGEN) 20 MG/DL (6-23); GLUCOSE, SERUM 129 MG/DL (60-99)
[2017-02-23 06:07] LABS: PLATELET ESTIMATE ADQ (ADEQUATE)
[2017-02-23 06:08] LABS: ACANTHOCYTES OCC (0-2/OIF); ELLIPTOCYTES 1+ (3-10/OIF) (0-2/OIF)
[2017-02-23 06:09] LABS: HYPOCHROMIA 1+ (3-10/OIF) (0-2/OIF); TARGET CELLS OCC (1-2/OIF) (0-1/OIF)
[2017-02-23 15:30] LABS: ASCORBIC ACID (UR NOT ORDER) NEG (NEG); BILIRUBIN, URINE NEGATIVE (NEG); KETONE, URINE NEGATIVE (NEG); LEUKOCYTE ESTERASE(NOT OR NEG (NEG); WBC (NOT ORDERED) (RFLEX) < 1 (0-5)
[2017-02-24 08:25] LABS: CALCIUM, SERUM 9.1 MG/DL (8.5-10.4); CHLORIDE, SERUM 98 MMOL/L (96-112); CO2 (CARBON DIOXIDE) 32 MMOL/L (24-34); CREATININE 0.77 MG/DL (0.55-1.02); GFR AFRICAN AMERICAN 98 ML/MIN (>=60); GFR NON AFRICAN AMERICAN 85 ML/MIN (>=60); GLUCOSE, SERUM 106 MG/DL (60-99); POTASSIUM, SERUM 3.6 MMOL/L (3.5-5.3); SODIUM, SERUM 138 MMOL/L (135-148)
[2017-02-24 08:26] LABS: BUN (BLOOD UREA NITROGEN) 13 MG/DL (6-23)
[2017-02-24 08:41] LABS: BASOPHILS 0.6 %; BASOPHILS ABSOLUTE 0.05 10/3/uL (0.0-0.16); EOSINOPHILS ABSOLUTE 0.16 10/3/uL (0.0-0.53); HEMATOCRIT 32.4 % (36.0-48.0); HEMOGLOBIN 10.1 g/dL (12.0-16.0); IMMATURE GRANULOCYTES 0.1 %; IMMATURE GRANULOCYTES ABSOLUTE 0.01 10/3/uL (0.0-0.11); LYMPHOCYTES 17.2 %; LYMPHOCYTES ABSOLUTE 1.35 10/3/uL (0.67-4.30); MANUAL DIFF NO %; MEAN CORPUS HGB CONC 31.2 g/dL (32.0-36.0); MEAN CORPUSCULAR HEMOGLOB 22.5 pg (26.0-34.0); MEAN CORPUSCULAR VOLUME 72.3 fL (80-100); MONOCYTES 13.5 %; MONOCYTES ABSOLUTE 1.06 10/3/uL (0.21-1.20); NEUTROPHILS 66.6 %; NEUTROPHILS ABSOLUTE 5.22 10/3/uL (2.02-8.40); PLATELET COUNT 258 10/3/uL (150-400); RBC DISTRIBUTION WIDTH 19.3 % (12.0-16.0); RED CELL COUNT 4.48 10/6/uL (4.0-5.6); WHITE BLOOD CELLS 7.9 10/3/uL (4.5-10.5)
[2017-02-25 03:51] LABS: BASOPHILS 1.1 %; BASOPHILS ABSOLUTE 0.08 10/3/uL (0.0-0.16); EOSINOPHILS 2.5 %; EOSINOPHILS ABSOLUTE 0.18 10/3/uL (0.0-0.53); HEMOGLOBIN 10.3 g/dL (12.0-16.0); IMMATURE GRANULOCYTES 0.1 %; IMMATURE GRANULOCYTES ABSOLUTE 0.01 10/3/uL (0.0-0.11); LYMPHOCYTES 20.6 %; MEAN CORPUS HGB CONC 31.2 g/dL (32.0-36.0); MEAN CORPUSCULAR HEMOGLOB 22.5 pg (26.0-34.0); MEAN CORPUSCULAR VOLUME 72.2 fL (80-100); MONOCYTES 14.7 %; MONOCYTES ABSOLUTE 1.07 10/3/uL (0.21-1.20); NEUTROPHILS ABSOLUTE 4.44 10/3/uL (2.02-8.40); PLATELET COUNT 329 10/3/uL (150-400); RBC DISTRIBUTION WIDTH 19.3 % (12.0-16.0); RED CELL COUNT 4.57 10/6/uL (4.0-5.6); WHITE BLOOD CELLS 7.3 10/3/uL (4.5-10.5)
[2017-02-25 04:04] LABS: MANUAL DIFF NO %
[2017-02-25 04:09] LABS: BUN (BLOOD UREA NITROGEN) 12 MG/DL (6-23); CALCIUM, SERUM 9.2 MG/DL (8.5-10.4); CHLORIDE, SERUM 97 MMOL/L (96-112); CREATININE 0.82 MG/DL (0.55-1.02); GFR AFRICAN AMERICAN 91 ML/MIN (>=60); GFR NON AFRICAN AMERICAN 78 ML/MIN (>=60); GLUCOSE, SERUM 119 MG/DL (60-99); POTASSIUM, SERUM 3.5 MMOL/L (3.5-5.3); SODIUM, SERUM 138 MMOL/L (135-148)
[2017-02-25 04:12] LABS: CO2 (CARBON DIOXIDE) 37 MMOL/L (24-34)
[2017-02-25 04:30] LABS: PLATELET ESTIMATE ADQ (ADEQUATE)
[2017-02-25 04:31] LABS: ANISOCYTOSIS 1+ (5-10/OIF) (0-5/OIF); POIKILOCYTOSIS 1+ (5-10/OIF) (0-5/OIF); RBC MORPHOLOGY ABN (NORMAL)
[2017-02-26 06:47] LABS: BASOPHILS ABSOLUTE 0.07 10/3/uL (0.0-0.16); EOSINOPHILS 2.8 %; EOSINOPHILS ABSOLUTE 0.19 10/3/uL (0.0-0.53); HEMATOCRIT 30.2 % (36.0-48.0); HEMOGLOBIN 9.5 g/dL (12.0-16.0); IMMATURE GRANULOCYTES 0.1 %; IMMATURE GRANULOCYTES ABSOLUTE 0.01 10/3/uL (0.0-0.11); LYMPHOCYTES 20.9 %; LYMPHOCYTES ABSOLUTE 1.42 10/3/uL (0.67-4.30); MEAN CORPUS HGB CONC 31.5 g/dL (32.0-36.0); MEAN CORPUSCULAR HEMOGLOB 22.7 pg (26.0-34.0); MEAN CORPUSCULAR VOLUME 72.1 fL (80-100); MONOCYTES 16.2 %; NEUTROPHILS ABSOLUTE 3.99 10/3/uL (2.02-8.40); PLATELET COUNT 280 10/3/uL (150-400); RBC DISTRIBUTION WIDTH 19.3 % (12.0-16.0); RED CELL COUNT 4.19 10/6/uL (4.0-5.6); WHITE BLOOD CELLS 6.8 10/3/uL (4.5-10.5)
[2017-02-26 06:52] LABS: MANUAL DIFF NO %
[2017-02-26 06:55] LABS: BUN (BLOOD UREA NITROGEN) 15 MG/DL (6-23); CALCIUM, SERUM 8.9 MG/DL (8.5-10.4); CHLORIDE, SERUM 101 MMOL/L (96-112); GFR AFRICAN AMERICAN 94 ML/MIN (>=60); GFR NON AFRICAN AMERICAN 81 ML/MIN (>=60); GLUCOSE, SERUM 97 MG/DL (60-99); POTASSIUM, SERUM 3.6 MMOL/L (3.5-5.3); SODIUM, SERUM 136 MMOL/L (135-148)
[2017-02-26 06:56] LABS: CO2 (CARBON DIOXIDE) 29 MMOL/L (24-34)
[2017-02-26 08:24] LABS: ANISOCYTOSIS 1+ (5-10/OIF) (0-5/OIF); HYPOCHROMIA 1+ (3-10/OIF) (0-2/OIF); PLATELET ESTIMATE ADQ (ADEQUATE)
[2017-02-26 08:25] LABS: POLYCHROMASIA 1+ (2-5/OIF) (0-1/OIF); REACTIVE LYMPHS OCC (0-2%) (0-5%)
[2017-02-28 06:05] LABS: BASOPHILS 0.5 %; BASOPHILS ABSOLUTE 0.04 10/3/uL (0.0-0.16); EOSINOPHILS 2.7 %; HEMATOCRIT 31.1 % (36.0-48.0); HEMOGLOBIN 9.8 g/dL (12.0-16.0); IMMATURE GRANULOCYTES 0.1 %; IMMATURE GRANULOCYTES ABSOLUTE 0.01 10/3/uL (0.0-0.11); LYMPHOCYTES 20.1 %; LYMPHOCYTES ABSOLUTE 1.47 10/3/uL (0.67-4.30); MEAN CORPUS HGB CONC 31.5 g/dL (32.0-36.0); MEAN CORPUSCULAR HEMOGLOB 22.5 pg (26.0-34.0); MEAN CORPUSCULAR VOLUME 71.5 fL (80-100); MONOCYTES 14.8 %; MONOCYTES ABSOLUTE 1.08 10/3/uL (0.21-1.20); NEUTROPHILS 61.8 %; NEUTROPHILS ABSOLUTE 4.52 10/3/uL (2.02-8.40); PLATELET COUNT 306 10/3/uL (150-400); RED CELL COUNT 4.35 10/6/uL (4.0-5.6); WHITE BLOOD CELLS 7.3 10/3/uL (4.5-10.5)
[2017-02-28 06:06] LABS: MANUAL DIFF NO %
[2017-02-28 06:20] LABS: BUN (BLOOD UREA NITROGEN) 18 MG/DL (6-23); CALCIUM, SERUM 9.5 MG/DL (8.5-10.4); CHLORIDE, SERUM 100 MMOL/L (96-112); CO2 (CARBON DIOXIDE) 26 MMOL/L (24-34); CREATININE 0.88 MG/DL (0.55-1.02); GFR AFRICAN AMERICAN 83 ML/MIN (>=60); GFR NON AFRICAN AMERICAN 72 ML/MIN (>=60); GLUCOSE, SERUM 107 MG/DL (60-99); POTASSIUM, SERUM 4.4 MMOL/L (3.5-5.3); SODIUM, SERUM 135 MMOL/L (135-148)
[2017-03-01 08:38] LABS: ALLENS TEST Pos; BE (BASE EXCESS) 3.3 MEQ/L (0 +/- 2.5); HCO3 (ACTUAL BICARBONATE) 27.8 MEQ/L (23-27); HEMOBLOGIN CONTENT 10.8 G/DL (12-16); INSTRUMENT SERIAL # 8083; METHEMOGLOBIN 0.1 % (0-3); O2 CONTENT 14.2 VOL% (18-24); PCO2 (CO2 TENSION) 42 MMHG (35-45); PO2 (O2 TENSION) 74 MMHG (79-93); SAMPLE Arterial; pH 7.44 (7.37-7.43)
[2017-03-01 09:26] LABS: INTERNATIONAL NORMAL RATI 1.3 UNITS (-); PROTIME (NOT ORD) 16.1 SEC (12.0-14.5)
[2017-03-01 09:27] LABS: PARTIAL THROMBO TIME 58.3 SEC (22.5-37.2)
[2017-03-01 09:30] LABS: BASOPHILS 0.6 %; BASOPHILS ABSOLUTE 0.05 10/3/uL (0.0-0.16); EOSINOPHILS 2.1 %; EOSINOPHILS ABSOLUTE 0.16 10/3/uL (0.0-0.53); HEMATOCRIT 32.4 % (36.0-48.0); HEMOGLOBIN 9.9 g/dL (12.0-16.0); IMMATURE GRANULOCYTES 0.3 %; IMMATURE GRANULOCYTES ABSOLUTE 0.02 10/3/uL (0.0-0.11); LYMPHOCYTES 18.2 %; LYMPHOCYTES ABSOLUTE 1.42 10/3/uL (0.67-4.30); MEAN CORPUS HGB CONC 30.6 g/dL (32.0-36.0); MEAN CORPUSCULAR HEMOGLOB 21.9 pg (26.0-34.0); MEAN CORPUSCULAR VOLUME 71.7 fL (80-100); MONOCYTES 16.4 %; MONOCYTES ABSOLUTE 1.28 10/3/uL (0.21-1.20); NEUTROPHILS 62.4 %; NEUTROPHILS ABSOLUTE 4.86 10/3/uL (2.02-8.40); PLATELET COUNT 274 10/3/uL (150-400); RBC DISTRIBUTION WIDTH 19.1 % (12.0-16.0); RED CELL COUNT 4.52 10/6/uL (4.0-5.6); WHITE BLOOD CELLS 7.8 10/3/uL (4.5-10.5)
[2017-03-01 09:31] LABS: MANUAL DIFF NO %
[2017-03-01 09:34] LABS: % IRON SAT 5 % (20-50); A/G RATIO 0.8 (0.7-1.9); ALBUMIN 3.3 G/DL (3.5-5.0); ALKALINE PHOSPHATASE 78 U/L (45-117); BUN (BLOOD UREA NITROGEN) 20 MG/DL (6-23); CALCIUM, SERUM 9.3 MG/DL (8.5-10.4); CHLORIDE, SERUM 101 MMOL/L (96-112); CO2 (CARBON DIOXIDE) 30 MMOL/L (24-34); CREATININE 0.89 MG/DL (0.55-1.02); GFR AFRICAN AMERICAN 82 ML/MIN (>=60); GFR NON AFRICAN AMERICAN 71 ML/MIN (>=60); GLOBULIN 4.2 G/DL (2.5-4.1); GLUCOSE, SERUM 112 MG/DL (60-99); IRON BINDING CAPACITY 484 MCG/DL (225-410); IRON, SERUM 23 MCG/DL (35-150); POTASSIUM, SERUM 4.1 MMOL/L (3.5-5.3); SGOT(AST) 19 U/L (5-40); SGPT(ALT) 20 U/L (5-65); SODIUM, SERUM 135 MMOL/L (135-148); TOTAL PROTEIN 7.5 G/DL (6.0-8.5)
[2017-03-01 10:25] LABS: ANISOCYTOSIS 1+ (5-10/OIF) (0-5/OIF); BURR CELLS 1+ (3-10/OIF) (0-2/OIF); HYPOCHROMIA 1+ (3-10/OIF) (0-2/OIF); PLATELET ESTIMATE ADQ (ADEQUATE); TEARDROP SHAPED RBCS OCC (0-2/OIF)
[2017-03-01 10:26] LABS: HELMET CELLS OCC (0-2/OIF); SCHISTOCYTES OCC (0-2/OIF)
[2017-03-01 10:52] LABS: MAX AMP (ADP) 49.3 MM (35-68); TEG - ANGLE 74.3 DEG (53-72); TEG - COAGULATION INDEX 1.8 (-3 TO 3); TEG - MAXIMUM AMPLITUDE 71.8 MM (50-70); TEG - RATE 6.8 MIN (5.0-10.0); TEG PLAVIX/EFFIENT/TICLID(ADP) 38.3 % INHIB (< 40)
[2017-03-01 13:14] LABS: BUN (BLOOD UREA NITROGEN) 20 MG/DL (6-23); CALCIUM, SERUM 9.4 MG/DL (8.5-10.4); CHLORIDE, SERUM 100 MMOL/L (96-112); CO2 (CARBON DIOXIDE) 26 MMOL/L (24-34); GFR AFRICAN AMERICAN 71 ML/MIN (>=60); GFR NON AFRICAN AMERICAN 62 ML/MIN (>=60); GLUCOSE, SERUM 181 MG/DL (60-99); POTASSIUM, SERUM 4.6 MMOL/L (3.5-5.3); SODIUM, SERUM 135 MMOL/L (135-148)
[2017-03-01 13:40] LABS: BE (BASE EXCESS) -2.1 MEQ/L (0 +/- 2.5); CARBOXYHEMOGLOBIN 0.7 % (0-3); HCO3 (ACTUAL BICARBONATE) 24.7 MEQ/L (23-27); HEMOBLOGIN CONTENT 11.3 G/DL (12-16); INSTRUMENT SERIAL # 11843; METHEMOGLOBIN 0.4 % (0-3); MODE SIMV; O2 CONTENT 16.6 VOL% (18-24); OPERATOR ID 18642; PCO2 (CO2 TENSION) 51 MMHG (35-45); PO2 (O2 TENSION) 364 MMHG (79-93); PRESSURE SUPPORT 0 cm.H2O; SAMPLE Arterial; TIDAL VOLUME 650 ML
[2017-03-01 14:01] LABS: BASOPHILS 0.5 %; BASOPHILS ABSOLUTE 0.04 10/3/uL (0.0-0.16); EOSINOPHILS 1.8 %; EOSINOPHILS ABSOLUTE 0.14 10/3/uL (0.0-0.53); HEMATOCRIT 32.2 % (36.0-48.0); HEMOGLOBIN 10.1 g/dL (12.0-16.0); IMMATURE GRANULOCYTES 0.1 %; IMMATURE GRANULOCYTES ABSOLUTE 0.01 10/3/uL (0.0-0.11); LYMPHOCYTES 10.1 %; LYMPHOCYTES ABSOLUTE 0.77 10/3/uL (0.67-4.30); MANUAL DIFF NO %; MEAN CORPUS HGB CONC 31.4 g/dL (32.0-36.0); MEAN CORPUSCULAR HEMOGLOB 22.5 pg (26.0-34.0); MEAN CORPUSCULAR VOLUME 71.9 fL (80-100); MONOCYTES 10.7 %; MONOCYTES ABSOLUTE 0.82 10/3/uL (0.21-1.20); NEUTROPHILS 76.8 %; NEUTROPHILS ABSOLUTE 5.85 10/3/uL (2.02-8.40); PLATELET COUNT 300 10/3/uL (150-400); RBC DISTRIBUTION WIDTH 19.2 % (12.0-16.0); RED CELL COUNT 4.48 10/6/uL (4.0-5.6); WHITE BLOOD CELLS 7.6 10/3/uL (4.5-10.5)
[2017-03-01 14:10] LABS: BUN (BLOOD UREA NITROGEN) 21 MG/DL (6-23); CALCIUM, SERUM 8.7 MG/DL (8.5-10.4); CHLORIDE, SERUM 101 MMOL/L (96-112); CO2 (CARBON DIOXIDE) 26 MMOL/L (24-34); CREATININE 0.99 MG/DL (0.55-1.02); GFR AFRICAN AMERICAN 72 ML/MIN (>=60); GFR NON AFRICAN AMERICAN 62 ML/MIN (>=60); GLUCOSE, SERUM 183 MG/DL (60-99); POTASSIUM, SERUM 4.7 MMOL/L (3.5-5.3); SODIUM, SERUM 134 MMOL/L (135-148)
[2017-03-01 14:26] LABS: ACANTHOCYTES OCC (0-2/OIF); ANISOCYTOSIS 1+ (5-10/OIF) (0-5/OIF); HYPOCHROMIA 1+ (3-10/OIF) (0-2/OIF); PLATELET ESTIMATE ADQ (ADEQUATE)
[2017-03-01 14:27] LABS: BURR CELLS 1+ (3-10/OIF) (0-2/OIF); ELLIPTOCYTES 1+ (3-10/OIF) (0-2/OIF); HELMET CELLS OCC (0-2/OIF); SCHISTOCYTES OCC (0-2/OIF)
[2017-03-01 14:28] LABS: GIANT PLATELET RARE
[2017-03-01 15:35] LABS: BE (BASE EXCESS) -0.4 MEQ/L (0 +/- 2.5); CARBOXYHEMOGLOBIN 0.8 % (0-3); HCO3 (ACTUAL BICARBONATE) 23.9 MEQ/L (23-27); HEMOBLOGIN CONTENT 11.7 G/DL (12-16); INSTRUMENT SERIAL # 11843; METHEMOGLOBIN 0.4 % (0-3); MODE CMV; O2 CONTENT 15.7 VOL% (18-24); OPERATOR ID 18642; PCO2 (CO2 TENSION) 38 MMHG (35-45); PO2 (O2 TENSION) 86 MMHG (79-93); SAMPLE Arterial; TIDAL VOLUME 450 ML; pH 7.42 (7.37-7.43)
[2017-03-02 03:43] LABS: BASOPHILS 0.3 %; BASOPHILS ABSOLUTE 0.04 10/3/uL (0.0-0.16); EOSINOPHILS 0.4 %; EOSINOPHILS ABSOLUTE 0.05 10/3/uL (0.0-0.53); HEMATOCRIT 33.2 % (36.0-48.0); HEMOGLOBIN 10.5 g/dL (12.0-16.0); IMMATURE GRANULOCYTES 0.2 %; IMMATURE GRANULOCYTES ABSOLUTE 0.03 10/3/uL (0.0-0.11); LYMPHOCYTES 8.4 %; LYMPHOCYTES ABSOLUTE 1.05 10/3/uL (0.67-4.30); MEAN CORPUS HGB CONC 31.6 g/dL (32.0-36.0); MEAN CORPUSCULAR HEMOGLOB 22.9 pg (26.0-34.0); MEAN CORPUSCULAR VOLUME 72.3 fL (80-100); MONOCYTES 14.6 %; MONOCYTES ABSOLUTE 1.83 10/3/uL (0.21-1.20); NEUTROPHILS 76.1 %; NEUTROPHILS ABSOLUTE 9.51 10/3/uL (2.02-8.40); PLATELET COUNT 303 10/3/uL (150-400); RED CELL COUNT 4.59 10/6/uL (4.0-5.6)
[2017-03-02 03:46] LABS: MANUAL DIFF NO %; WHITE BLOOD CELLS 12.5 10/3/uL (4.5-10.5)
[2017-03-02 03:49] LABS: INTERNATIONAL NORMAL RATI 1.3 UNITS (-); PARTIAL THROMBO TIME 35.3 SEC (22.5-37.2); PROTIME (NOT ORD) 16.1 SEC (12.0-14.5)
[2017-03-02 03:55] LABS: ALBUMIN 2.9 G/DL (3.5-5.0); BUN (BLOOD UREA NITROGEN) 19 MG/DL (6-23); CHLORIDE, SERUM 101 MMOL/L (96-112); CO2 (CARBON DIOXIDE) 26 MMOL/L (24-34); CREATININE 0.74 MG/DL (0.55-1.02); GFR AFRICAN AMERICAN 103 ML/MIN (>=60); GFR NON AFRICAN AMERICAN 89 ML/MIN (>=60); PHOSPHORUS, SERUM 3.8 MG/DL (2.5-4.5); POTASSIUM, SERUM 4.4 MMOL/L (3.5-5.3); SODIUM, SERUM 136 MMOL/L (135-148)
[2017-03-02 03:56] LABS: GLUCOSE, SERUM 101 MG/DL (60-99)
[2017-03-02 05:59] LABS: ANISOCYTOSIS 1+ (5-10/OIF) (0-5/OIF); PLATELET ESTIMATE ADQ (ADEQUATE)
[2017-03-02 06:01] LABS: BURR CELLS 1+ (3-10/OIF) (0-2/OIF); SCHISTOCYTES OCC (0-2/OIF); TARGET CELLS FEW (3-10/OIF) (0-1/OIF); TEARDROP SHAPED RBCS OCC (0-2/OIF)
[2017-03-02 06:02] LABS: ACANTHOCYTES OCC (0-2/OIF); ELLIPTOCYTES 1+ (3-10/OIF) (0-2/OIF); HELMET CELLS FEW (3-10/OIF)
[2017-03-02 20:28] LABS: TEG - RATE 7.9 MIN (5.0-10.0)
[2017-03-02 20:29] LABS: TEG - ANGLE 68.9 DEG (53-72); TEG - COAGULATION INDEX -0.3 (-3 TO 3); TEG - MAXIMUM AMPLITUDE 64.8 MM (50-70)
[2017-03-02 21:18] LABS: BE (BASE EXCESS) -6.8 MEQ/L (0 +/- 2.5); CARBOXYHEMOGLOBIN 0.2 % (0-3); HCO3 (ACTUAL BICARBONATE) 17.9 MEQ/L (23-27); HEMOBLOGIN CONTENT 10.6 G/DL (12-16); INSTRUMENT SERIAL # 11843; METHEMOGLOBIN 0.7 % (0-3); MODE SIMV; O2 CONTENT 15.9 VOL% (18-24); OPERATOR ID 13744; PCO2 (CO2 TENSION) 33 MMHG (35-45); PO2 (O2 TENSION) 444 MMHG (79-93); SAMPLE Arterial; TIDAL VOLUME 600 ML; pH 7.35 (7.37-7.43)
[2017-03-02 22:20] LABS: BUN (BLOOD UREA NITROGEN) 19 MG/DL (6-23); CALCIUM, SERUM 7.8 MG/DL (8.5-10.4); CHLORIDE, SERUM 109 MMOL/L (96-112); CO2 (CARBON DIOXIDE) 21 MMOL/L (24-34); CREATININE 0.81 MG/DL (0.55-1.02); GFR AFRICAN AMERICAN 92 ML/MIN (>=60); GFR NON AFRICAN AMERICAN 79 ML/MIN (>=60); GLUCOSE, SERUM 99 MG/DL (60-99); HEMOGLOBIN 10.1 g/dL (12.0-16.0); MEAN CORPUS HGB CONC 30.6 g/dL (32.0-36.0); MEAN CORPUSCULAR HEMOGLOB 22.5 pg (26.0-34.0); MEAN CORPUSCULAR VOLUME 73.5 fL (80-100); POTASSIUM, SERUM 4.8 MMOL/L (3.5-5.3); RBC DISTRIBUTION WIDTH 18.9 % (12.0-16.0); RED CELL COUNT 4.49 10/6/uL (4.0-5.6); SODIUM, SERUM 141 MMOL/L (135-148)
[2017-03-02 22:22] LABS: INTERNATIONAL NORMAL RATI 2.8 UNITS (-); PARTIAL THROMBO TIME 59.7 SEC (22.5-37.2)
[2017-03-02 22:23] LABS: MANUAL DIFF YES %; PLATELET COUNT 84 10/3/uL (150-400); WHITE BLOOD CELLS 39.4 10/3/uL (4.5-10.5)
[2017-03-02 22:30] LABS: PROTIME (NOT ORD) 29.3 SEC (12.0-14.5)
[2017-03-02 22:48] LABS: BAND NEUTROPHILS 13 %; LYMPHOCYTES 2 %; LYMPHOCYTES ABSOLUTE (CALC) 0.79 10/3/uL (0.67-4.30); NEUTROPHILS ABSOLUTE (CALC) 38.61 10/3/uL (2.02-8.40); SEGMENTED NEUTROPHIL (0) 85 %; TOTAL NUCLEATED CELLS 100
[2017-03-02 22:49] LABS: ANISOCYTOSIS 1+ (5-10/OIF) (0-5/OIF); SCHISTOCYTES FEW (3-10/OIF)
[2017-03-02 22:50] LABS: PLATELET ESTIMATE SLT DEC (ADEQUATE)
[2017-03-03 03:26] LABS: HEMATOCRIT 29.6 % (36.0-48.0); MEAN CORPUS HGB CONC 30.4 g/dL (32.0-36.0); MEAN CORPUSCULAR HEMOGLOB 22.3 pg (26.0-34.0); MEAN CORPUSCULAR VOLUME 73.4 fL (80-100); PLATELET COUNT 89 10/3/uL (150-400); RED CELL COUNT 4.03 10/6/uL (4.0-5.6); WHITE BLOOD CELLS 24.1 10/3/uL (4.5-10.5)
[2017-03-03 03:28] LABS: MANUAL DIFF YES %
[2017-03-03 03:32] LABS: CALCIUM, SERUM 7.9 MG/DL (8.5-10.4); CHLORIDE, SERUM 108 MMOL/L (96-112); CO2 (CARBON DIOXIDE) 25 MMOL/L (24-34); CREATININE 0.87 MG/DL (0.55-1.02); GFR AFRICAN AMERICAN 85 ML/MIN (>=60); GFR NON AFRICAN AMERICAN 73 ML/MIN (>=60); POTASSIUM, SERUM 4.5 MMOL/L (3.5-5.3); SODIUM, SERUM 141 MMOL/L (135-148)
[2017-03-03 03:34] LABS: BUN (BLOOD UREA NITROGEN) 23 MG/DL (6-23); GLUCOSE, SERUM 151 MG/DL (60-99)
[2017-03-03 03:53] LABS: BAND NEUTROPHILS 8 %; HYPOCHROMIA 1+ (3-10/OIF) (0-2/OIF); LYMPHOCYTES 1 %; LYMPHOCYTES ABSOLUTE (CALC) 0.24 10/3/uL (0.67-4.30); MONOCYTES 3 %; MONOCYTES ABSOLUTE (CALC) 0.72 10/3/uL (0.21-1.20); NEUTROPHILS ABSOLUTE (CALC) 23.14 10/3/uL (2.02-8.40); PLATELET ESTIMATE DEC (ADEQUATE); SEGMENTED NEUTROPHIL (0) 88 %; TOTAL NUCLEATED CELLS 100
[2017-03-03 03:54] LABS: ACANTHOCYTES FEW (3-10/OIF); ANISOCYTOSIS 1+ (5-10/OIF) (0-5/OIF); ELLIPTOCYTES 1+ (3-10/OIF) (0-2/OIF); SCHISTOCYTES OCC (0-2/OIF)
[2017-03-03 03:55] LABS: HELMET CELLS OCC (0-2/OIF)
[2017-03-03 04:55] LABS: INSTRUMENT SERIAL # 11843
[2017-03-03 04:56] LABS: BE (BASE EXCESS) -2.9 MEQ/L (0 +/- 2.5); CARBOXYHEMOGLOBIN 0.7 % (0-3); DEVICE NC; HCO3 (ACTUAL BICARBONATE) 23.3 MEQ/L (23-27); HEMOBLOGIN CONTENT 9.8 G/DL (12-16); METHEMOGLOBIN 0.6 % (0-3); OPERATOR ID 13744; PCO2 (CO2 TENSION) 47 MMHG (35-45); PO2 (O2 TENSION) 89 MMHG (79-93); SAMPLE Arterial; pH 7.32 (7.37-7.43)
[2017-03-03 12:18] LABS: BASOPHILS 0 %; BASOPHILS ABSOLUTE 0.01 10/3/uL (0.0-0.16); EOSINOPHILS 0 %; HEMATOCRIT 29.9 % (36.0-48.0); HEMOGLOBIN 9.3 g/dL (12.0-16.0); IMMATURE GRANULOCYTES 0.4 %; IMMATURE GRANULOCYTES ABSOLUTE 0.08 10/3/uL (0.0-0.11); LYMPHOCYTES 3.7 %; LYMPHOCYTES ABSOLUTE 0.82 10/3/uL (0.67-4.30); MEAN CORPUS HGB CONC 31.1 g/dL (32.0-36.0); MEAN CORPUSCULAR HEMOGLOB 22.6 pg (26.0-34.0); MEAN CORPUSCULAR VOLUME 72.6 fL (80-100); MONOCYTES 6.8 %; MONOCYTES ABSOLUTE 1.52 10/3/uL (0.21-1.20); NEUTROPHILS 89.1 %; NEUTROPHILS ABSOLUTE 19.81 10/3/uL (2.02-8.40); NUCLEATED RED BLOOD CELLS 0.2 /100WBC (0-0); PLATELET COUNT 156 10/3/uL (150-400); RBC DISTRIBUTION WIDTH 19.2 % (12.0-16.0); RED CELL COUNT 4.12 10/6/uL (4.0-5.6); WHITE BLOOD CELLS 22.2 10/3/uL (4.5-10.5)
[2017-03-03 12:19] LABS: MANUAL DIFF NO %
[2017-03-03 12:32] LABS: BUN (BLOOD UREA NITROGEN) 32 MG/DL (6-23); CALCIUM, SERUM 8.8 MG/DL (8.5-10.4); CHLORIDE, SERUM 110 MMOL/L (96-112); CO2 (CARBON DIOXIDE) 27 MMOL/L (24-34); CREATININE 1.18 MG/DL (0.55-1.02); GFR AFRICAN AMERICAN 58 ML/MIN (>=60); GFR NON AFRICAN AMERICAN 50 ML/MIN (>=60); GLUCOSE, SERUM 106 MG/DL (60-99); POTASSIUM, SERUM 4.4 MMOL/L (3.5-5.3); SODIUM, SERUM 144 MMOL/L (135-148)
[2017-03-03 16:49] LABS: HEMATOCRIT 29.9 % (36.0-48.0); HEMOGLOBIN 9.2 g/dL (12.0-16.0)
[2017-03-03 16:53] LABS: POTASSIUM, SERUM 4.9 MMOL/L (3.5-5.3)
[2017-03-04 04:38] LABS: CALCIUM, SERUM 8.8 MG/DL (8.5-10.4); CHLORIDE, SERUM 106 MMOL/L (96-112); CO2 (CARBON DIOXIDE) 31 MMOL/L (24-34); CREATININE 0.99 MG/DL (0.55-1.02); GFR AFRICAN AMERICAN 72 ML/MIN (>=60); GFR NON AFRICAN AMERICAN 62 ML/MIN (>=60); POTASSIUM, SERUM 4.8 MMOL/L (3.5-5.3); SODIUM, SERUM 141 MMOL/L (135-148)
[2017-03-04 04:40] LABS: BUN (BLOOD UREA NITROGEN) 42 MG/DL (6-23); GLUCOSE, SERUM 205 MG/DL (60-99)
[2017-03-04 04:41] LABS: HEMOGLOBIN 8.8 g/dL (12.0-16.0); MEAN CORPUS HGB CONC 30.3 g/dL (32.0-36.0); MEAN CORPUSCULAR HEMOGLOB 22.4 pg (26.0-34.0); NUCLEATED RED BLOOD CELLS 0.3 /100WBC (0-0); PLATELET COUNT 151 10/3/uL (150-400); RBC DISTRIBUTION WIDTH 19.1 % (12.0-16.0); RED CELL COUNT 3.92 10/6/uL (4.0-5.6); WHITE BLOOD CELLS 30.2 10/3/uL (4.5-10.5)
[2017-03-04 04:42] LABS: MANUAL DIFF YES %
[2017-03-04 05:14] LABS: BAND NEUTROPHILS 4 %; LYMPHOCYTES 5 %; LYMPHOCYTES ABSOLUTE (CALC) 1.51 10/3/uL (0.67-4.30); MONOCYTES 9 %; MONOCYTES ABSOLUTE (CALC) 2.72 10/3/uL (0.21-1.20); NEUTROPHILS ABSOLUTE (CALC) 25.97 10/3/uL (2.02-8.40); SEGMENTED NEUTROPHIL (0) 82 %; TOTAL NUCLEATED CELLS 100
[2017-03-04 05:15] LABS: ANISOCYTOSIS 1+ (5-10/OIF) (0-5/OIF); BURR CELLS 1+ (3-10/OIF) (0-2/OIF); ELLIPTOCYTES 1+ (3-10/OIF) (0-2/OIF); PLATELET ESTIMATE ADQ (ADEQUATE); SCHISTOCYTES FEW (3-10/OIF)
[2017-03-04 05:16] LABS: HOWELL JOLLY BODIES OCC (0-1); POLYCHROMASIA 1+ (2-5/OIF) (0-1/OIF)
[2017-03-04 05:17] LABS: BASOPHILIC STIPPLING 1+ (2-5/OIF) (0-1/OIF); TARGET CELLS OCC (1-2/OIF) (0-1/OIF)
[2017-03-04 05:42] LABS: INTERNATIONAL NORMAL RATI 1.3 UNITS (-)
[2017-03-04 05:43] LABS: PROTIME (NOT ORD) 16.2 SEC (12.0-14.5)
[2017-03-05 06:22] LABS: HEMATOCRIT 24.8 % (36.0-48.0); HEMOGLOBIN 7.5 g/dL (12.0-16.0); MEAN CORPUS HGB CONC 30.2 g/dL (32.0-36.0); MEAN CORPUSCULAR HEMOGLOB 22.4 pg (26.0-34.0); PLATELET COUNT 111 10/3/uL (150-400); RBC DISTRIBUTION WIDTH 19.5 % (12.0-16.0); RED CELL COUNT 3.35 10/6/uL (4.0-5.6); WHITE BLOOD CELLS 25.5 10/3/uL (4.5-10.5)
[2017-03-05 06:23] LABS: MANUAL DIFF YES %
[2017-03-05 06:24] LABS: INTERNATIONAL NORMAL RATI 1.3 UNITS (-); PROTIME (NOT ORD) 16.3 SEC (12.0-14.5)
[2017-03-05 06:32] LABS: CALCIUM, SERUM 9.1 MG/DL (8.5-10.4); CHLORIDE, SERUM 104 MMOL/L (96-112); CO2 (CARBON DIOXIDE) 31 MMOL/L (24-34); CREATININE 1.21 MG/DL (0.55-1.02); GFR AFRICAN AMERICAN 57 ML/MIN (>=60); GFR NON AFRICAN AMERICAN 49 ML/MIN (>=60); SODIUM, SERUM 141 MMOL/L (135-148)
[2017-03-05 06:33] LABS: BUN (BLOOD UREA NITROGEN) 48 MG/DL (6-23); GLUCOSE, SERUM 131 MG/DL (60-99); POTASSIUM, SERUM 3.6 MMOL/L (3.5-5.3)
[2017-03-05 06:51] LABS: ANISOCYTOSIS 1+ (5-10/OIF) (0-5/OIF); BAND NEUTROPHILS 6 %; EOSINOPHILS 1 %; EOSINOPHILS ABSOLUTE (CALC) 0.26 10/3/uL (0.0-0.53); HYPOCHROMIA 1+ (3-10/OIF) (0-2/OIF); LYMPHOCYTES 9 %; MICROCYTES 1+ (5-10/OIF) (0-5/OIF); MONOCYTES 15 %; MONOCYTES ABSOLUTE (CALC) 3.83 10/3/uL (0.21-1.20); NEUTROPHILS ABSOLUTE (CALC) 19.13 10/3/uL (2.02-8.40); PLATELET ESTIMATE SLT DEC (ADEQUATE); POLYCHROMASIA 1+ (2-5/OIF) (0-1/OIF); SEGMENTED NEUTROPHIL (0) 69 %; TOTAL NUCLEATED CELLS 100
[2017-03-05 06:52] LABS: ACANTHOCYTES OCC (0-2/OIF); HELMET CELLS OCC (0-2/OIF); POIKILOCYTOSIS 1+ (5-10/OIF) (0-5/OIF); SCHISTOCYTES OCC (0-2/OIF); SPHEROCYTES OCC (0-2/OIF); TARGET CELLS OCC (1-2/OIF) (0-1/OIF); TEARDROP SHAPED RBCS OCC (0-2/OIF)
[2017-03-05 06:53] LABS: TOXIC GRANULATION 1+; VACUOLATED NEUTROPHILES OCC
[2017-03-06 04:20] LABS: INTERNATIONAL NORMAL RATI 1.4 UNITS (-); PROTIME (NOT ORD) 16.9 SEC (12.0-14.5)
[2017-03-06 04:22] LABS: BASOPHILS 0.1 %; BASOPHILS ABSOLUTE 0.01 10/3/uL (0.0-0.16); EOSINOPHILS 0.1 %; EOSINOPHILS ABSOLUTE 0.02 10/3/uL (0.0-0.53); HEMOGLOBIN 7.1 g/dL (12.0-16.0); IMMATURE GRANULOCYTES 0.4 %; IMMATURE GRANULOCYTES ABSOLUTE 0.07 10/3/uL (0.0-0.11); LYMPHOCYTES ABSOLUTE 1.53 10/3/uL (0.67-4.30); MEAN CORPUS HGB CONC 29.6 g/dL (32.0-36.0); MEAN CORPUSCULAR HEMOGLOB 21.9 pg (26.0-34.0); MEAN CORPUSCULAR VOLUME 74.1 fL (80-100); MONOCYTES 14.3 %; MONOCYTES ABSOLUTE 2.74 10/3/uL (0.21-1.20); NEUTROPHILS 77.1 %; NEUTROPHILS ABSOLUTE 14.85 10/3/uL (2.02-8.40); NUCLEATED RED BLOOD CELLS 1.5 /100WBC (0-0); PLATELET COUNT 105 10/3/uL (150-400); RBC DISTRIBUTION WIDTH 19.5 % (12.0-16.0); RED CELL COUNT 3.24 10/6/uL (4.0-5.6); WHITE BLOOD CELLS 19.2 10/3/uL (4.5-10.5)
[2017-03-06 04:28] LABS: BUN (BLOOD UREA NITROGEN) 45 MG/DL (6-23); CALCIUM, SERUM 9.1 MG/DL (8.5-10.4); CHLORIDE, SERUM 97 MMOL/L (96-112); CREATININE 1.05 MG/DL (0.55-1.02); GFR AFRICAN AMERICAN 67 ML/MIN (>=60); GFR NON AFRICAN AMERICAN 58 ML/MIN (>=60); GLUCOSE, SERUM 120 MG/DL (60-99); POTASSIUM, SERUM 3.3 MMOL/L (3.5-5.3); SODIUM, SERUM 142 MMOL/L (135-148)
[2017-03-06 04:29] LABS: CO2 (CARBON DIOXIDE) 37 MMOL/L (24-34)
[2017-03-06 04:34] LABS: MANUAL DIFF NO %
[2017-03-06 05:20] LABS: ANISOCYTOSIS 1+ (5-10/OIF) (0-5/OIF)
[2017-03-06 05:21] LABS: ELLIPTOCYTES 1+ (3-10/OIF) (0-2/OIF); MICROCYTES 1+ (5-10/OIF) (0-5/OIF); PLATELET ESTIMATE SLT DEC (ADEQUATE); SCHISTOCYTES OCC (0-2/OIF); TARGET CELLS OCC (1-2/OIF) (0-1/OIF)
[2017-03-06 05:28] LABS: HELMET CELLS OCC (0-2/OIF)
[2017-03-06 05:29] LABS: SPHEROCYTES OCC (0-2/OIF)
[2017-03-07 05:35] LABS: INTERNATIONAL NORMAL RATI 1.9 UNITS (-); PROTIME (NOT ORD) 21.6 SEC (12.0-14.5)
[2017-03-07 05:41] LABS: BASOPHILS 0.1 %; BASOPHILS ABSOLUTE 0.02 10/3/uL (0.0-0.16); EOSINOPHILS 1.2 %; EOSINOPHILS ABSOLUTE 0.17 10/3/uL (0.0-0.53); HEMATOCRIT 24.2 % (36.0-48.0); HEMOGLOBIN 7.5 g/dL (12.0-16.0); IMMATURE GRANULOCYTES 0.4 %; IMMATURE GRANULOCYTES ABSOLUTE 0.05 10/3/uL (0.0-0.11); LYMPHOCYTES 13.8 %; LYMPHOCYTES ABSOLUTE 1.93 10/3/uL (0.67-4.30); MEAN CORPUSCULAR HEMOGLOB 22.9 pg (26.0-34.0); MEAN CORPUSCULAR VOLUME 73.8 fL (80-100); MONOCYTES 16.6 %; MONOCYTES ABSOLUTE 2.33 10/3/uL (0.21-1.20); NEUTROPHILS 67.9 %; NEUTROPHILS ABSOLUTE 9.52 10/3/uL (2.02-8.40); NUCLEATED RED BLOOD CELLS 2.4 /100WBC (0-0); PLATELET COUNT 162 10/3/uL (150-400); RBC DISTRIBUTION WIDTH 20.2 % (12.0-16.0); RED CELL COUNT 3.28 10/6/uL (4.0-5.6)
[2017-03-07 05:42] LABS: MANUAL DIFF NO %
[2017-03-07 05:46] LABS: CALCIUM, SERUM 9.2 MG/DL (8.5-10.4); CHLORIDE, SERUM 96 MMOL/L (96-112); CO2 (CARBON DIOXIDE) 39 MMOL/L (24-34); CREATININE 0.94 MG/DL (0.55-1.02); GFR AFRICAN AMERICAN 77 ML/MIN (>=60); GFR NON AFRICAN AMERICAN 66 ML/MIN (>=60); GLUCOSE, SERUM 97 MG/DL (60-99); POTASSIUM, SERUM 3.3 MMOL/L (3.5-5.3); SODIUM, SERUM 137 MMOL/L (135-148)
[2017-03-07 05:48] LABS: BUN (BLOOD UREA NITROGEN) 40 MG/DL (6-23)
[2017-03-07 05:53] LABS: ANISOCYTOSIS 1+ (5-10/OIF) (0-5/OIF); PLATELET ESTIMATE ADQ (ADEQUATE); POLYCHROMASIA 1+ (2-5/OIF) (0-1/OIF); TARGET CELLS FEW (3-10/OIF) (0-1/OIF)
[2017-03-08 05:55] LABS: CALCIUM, SERUM 8.9 MG/DL (8.5-10.4); CHLORIDE, SERUM 93 MMOL/L (96-112); CREATININE 0.75 MG/DL (0.55-1.02); GFR AFRICAN AMERICAN 101 ML/MIN (>=60); GFR NON AFRICAN AMERICAN 87 ML/MIN (>=60); GLUCOSE, SERUM 96 MG/DL (60-99); POTASSIUM, SERUM 3.4 MMOL/L (3.5-5.3); SODIUM, SERUM 141 MMOL/L (135-148)
[2017-03-08 05:56] LABS: BUN (BLOOD UREA NITROGEN) 32 MG/DL (6-23); CO2 (CARBON DIOXIDE) 44 MMOL/L (24-34)
[2017-03-08 05:59] LABS: INTERNATIONAL NORMAL RATI 2.2 UNITS (-); PARTIAL THROMBO TIME 42.6 SEC (22.5-37.2); PROTIME (NOT ORD) 23.8 SEC (12.0-14.5)
[2017-03-08 06:39] LABS: BASOPHILS 0.1 %; BASOPHILS ABSOLUTE 0.01 10/3/uL (0.0-0.16); EOSINOPHILS 2.8 %; EOSINOPHILS ABSOLUTE 0.35 10/3/uL (0.0-0.53); HEMATOCRIT 25.8 % (36.0-48.0); HEMOGLOBIN 7.7 g/dL (12.0-16.0); IMMATURE GRANULOCYTES 0.4 %; IMMATURE GRANULOCYTES ABSOLUTE 0.05 10/3/uL (0.0-0.11); LYMPHOCYTES 14.3 %; LYMPHOCYTES ABSOLUTE 1.79 10/3/uL (0.67-4.30); MEAN CORPUS HGB CONC 29.8 g/dL (32.0-36.0); MEAN CORPUSCULAR HEMOGLOB 22.4 pg (26.0-34.0); MONOCYTES 15.8 %; MONOCYTES ABSOLUTE 1.98 10/3/uL (0.21-1.20); NEUTROPHILS 66.6 %; NEUTROPHILS ABSOLUTE 8.38 10/3/uL (2.02-8.40); RBC DISTRIBUTION WIDTH 20.8 % (12.0-16.0); RED CELL COUNT 3.44 10/6/uL (4.0-5.6); WHITE BLOOD CELLS 12.6 10/3/uL (4.5-10.5)
[2017-03-08 06:40] LABS: MANUAL DIFF NO %; PLATELET COUNT 214 10/3/uL (150-400)
[2017-03-08 07:14] LABS: ANISOCYTOSIS 1+ (5-10/OIF) (0-5/OIF); MICROCYTES 1+ (5-10/OIF) (0-5/OIF); PLATELET ESTIMATE ADQ (ADEQUATE); POIKILOCYTOSIS 1+ (5-10/OIF) (0-5/OIF); POLYCHROMASIA 1+ (2-5/OIF) (0-1/OIF); SCHISTOCYTES OCC (0-2/OIF)
[2017-03-08 07:15] LABS: ELLIPTOCYTES 1+ (3-10/OIF) (0-2/OIF); HELMET CELLS OCC (0-2/OIF)
[2017-03-08 14:59] LABS: INTERNATIONAL NORMAL RATI 1.8 UNITS (-); PARTIAL THROMBO TIME 40.4 SEC (22.5-37.2); PROTIME (NOT ORD) 21.1 SEC (12.0-14.5)
[2017-03-09 04:24] LABS: INTERNATIONAL NORMAL RATI 2.3 UNITS (-); PROTIME (NOT ORD) 25.1 SEC (12.0-14.5)
[2017-03-09 04:26] LABS: BASOPHILS 0.1 %; BASOPHILS ABSOLUTE 0.01 10/3/uL (0.0-0.16); EOSINOPHILS 2.7 %; EOSINOPHILS ABSOLUTE 0.33 10/3/uL (0.0-0.53); HEMATOCRIT 25.9 % (36.0-48.0); HEMOGLOBIN 7.7 g/dL (12.0-16.0); IMMATURE GRANULOCYTES 0.2 %; IMMATURE GRANULOCYTES ABSOLUTE 0.03 10/3/uL (0.0-0.11); LYMPHOCYTES 11.5 %; LYMPHOCYTES ABSOLUTE 1.43 10/3/uL (0.67-4.30); MANUAL DIFF NO %; MEAN CORPUS HGB CONC 29.7 g/dL (32.0-36.0); MEAN CORPUSCULAR HEMOGLOB 22.4 pg (26.0-34.0); MEAN CORPUSCULAR VOLUME 75.3 fL (80-100); MONOCYTES 13.2 %; MONOCYTES ABSOLUTE 1.64 10/3/uL (0.21-1.20); NEUTROPHILS 72.3 %; NEUTROPHILS ABSOLUTE 8.99 10/3/uL (2.02-8.40); NUCLEATED RED BLOOD CELLS 2.4 /100WBC (0-0); PLATELET COUNT 248 10/3/uL (150-400); RED CELL COUNT 3.44 10/6/uL (4.0-5.6); WHITE BLOOD CELLS 12.4 10/3/uL (4.5-10.5)
[2017-03-09 04:38] LABS: BUN (BLOOD UREA NITROGEN) 29 MG/DL (6-23); CHLORIDE, SERUM 94 MMOL/L (96-112); CO2 (CARBON DIOXIDE) 43 MMOL/L (24-34); CREATININE 0.86 MG/DL (0.55-1.02); GFR AFRICAN AMERICAN 86 ML/MIN (>=60); GFR NON AFRICAN AMERICAN 74 ML/MIN (>=60); GLUCOSE, SERUM 95 MG/DL (60-99); SODIUM, SERUM 137 MMOL/L (135-148)
[2017-03-09 04:44] LABS: ACANTHOCYTES FEW (3-10/OIF); ANISOCYTOSIS 1+ (5-10/OIF) (0-5/OIF); MICROCYTES 1+ (5-10/OIF) (0-5/OIF); PLATELET ESTIMATE ADQ (ADEQUATE)
[2017-03-10 04:48] LABS: CALCIUM, SERUM 8.6 MG/DL (8.5-10.4); CHLORIDE, SERUM 91 MMOL/L (96-112); CO2 (CARBON DIOXIDE) 39 MMOL/L (24-34); CREATININE 1.18 MG/DL (0.55-1.02); GFR AFRICAN AMERICAN 58 ML/MIN (>=60); GFR NON AFRICAN AMERICAN 50 ML/MIN (>=60); GLUCOSE, SERUM 94 MG/DL (60-99); POTASSIUM, SERUM 3.3 MMOL/L (3.5-5.3); SODIUM, SERUM 137 MMOL/L (135-148)
[2017-03-10 04:50] LABS: BUN (BLOOD UREA NITROGEN) 36 MG/DL (6-23)
[2017-03-10 04:54] LABS: INTERNATIONAL NORMAL RATI 2.4 UNITS (-); PROTIME (NOT ORD) 26.2 SEC (12.0-14.5)
[2017-03-10 05:32] LABS: BASOPHILS 0.2 %; BASOPHILS ABSOLUTE 0.02 10/3/uL (0.0-0.16); EOSINOPHILS ABSOLUTE 0.63 10/3/uL (0.0-0.53); HEMOGLOBIN 7.4 g/dL (12.0-16.0); IMMATURE GRANULOCYTES 0.2 %; IMMATURE GRANULOCYTES ABSOLUTE 0.02 10/3/uL (0.0-0.11); LYMPHOCYTES 13.2 %; LYMPHOCYTES ABSOLUTE 1.67 10/3/uL (0.67-4.30); MEAN CORPUS HGB CONC 29.6 g/dL (32.0-36.0); MEAN CORPUSCULAR HEMOGLOB 22.4 pg (26.0-34.0); MEAN CORPUSCULAR VOLUME 75.8 fL (80-100); MONOCYTES 13.3 %; MONOCYTES ABSOLUTE 1.68 10/3/uL (0.21-1.20); NEUTROPHILS 68.1 %; NEUTROPHILS ABSOLUTE 8.65 10/3/uL (2.02-8.40); NUCLEATED RED BLOOD CELLS 0.9 /100WBC (0-0); PLATELET COUNT 300 10/3/uL (150-400); RBC DISTRIBUTION WIDTH 21.7 % (12.0-16.0); WHITE BLOOD CELLS 12.7 10/3/uL (4.5-10.5)
[2017-03-10 05:34] LABS: MANUAL DIFF NO %
[2017-03-10 05:58] LABS: PLATELET ESTIMATE ADQ (ADEQUATE)
[2017-03-10 05:59] LABS: ACANTHOCYTES OCC (0-2/OIF); ELLIPTOCYTES 1+ (3-10/OIF) (0-2/OIF); HYPOCHROMIA 1+ (3-10/OIF) (0-2/OIF); SCHISTOCYTES OCC (0-2/OIF)
[2017-03-10 06:00] LABS: POLYCHROMASIA 1+ (2-5/OIF) (0-1/OIF); TARGET CELLS FEW (3-10/OIF) (0-1/OIF)
[2017-04-21] MEDS ORDERED: C2 PO (15:37)
[2017-04-21] MEDS ORDERED: BUM1 PO (15:38)
[2017-04-21] MEDS ORDERED: ASAB PO (15:38)
[2017-04-21] MEDS ORDERED: LOP25 PO (15:39)
[2017-04-21] MEDS ORDERED: CORDARONE PO (15:40)
[2017-04-21] MEDS ORDERED: VITC500 PO (15:40)
[2017-04-21] MEDS ORDERED: LIPITOR40 PO (15:41)
[2017-04-21] MEDS ORDERED: FERROUS SULF325 M1 PO (15:42)
== END 2017-03-10 15:46 | DRG 216 ==
LOC: SSUOP 06:30 → SSU1 06:33 → 7NO 02-24 16:01 → CVICU 03-01 13:36 → 5NO 03-04 17:32
PROVIDERS: Hospitalist; Internal Medicine; Internal Medicine Cardiovascular Disease; Internal Medicine Critical Care Medicine; Nurse Practitioner Family; Student in an Organized Health Care Education/Training Program; Thoracic Surgery (Cardiothoracic Vascular Surgery)
PROC: 4A023N8 Measurement of Cardiac Sampling and Pressure, Bilateral, Percutaneous Approach (ICD-10-PCS; principal; 2017-02-22)
PROC: B2111ZZ Fluoroscopy of Multiple Coronary Arteries using Low Osmolar Contrast (ICD-10-PCS; 2017-02-22)
PROC: X2RF032 Replacement of Aortic Valve using Zooplastic Tissue, Rapid Deployment Technique, Open Approach, New Technology Group 2 (ICD-10-PCS; 2017-02-22)
PROC: 02RG08Z Replacement of Mitral Valve with Zooplastic Tissue, Open Approach (ICD-10-PCS; 2017-02-22)
PROC: B246ZZ4 Ultrasonography of Right and Left Heart, Transesophageal (ICD-10-PCS; 2017-02-22)
PROC: B246ZZ4 Ultrasonography of Right and Left Heart, Transesophageal (ICD-10-PCS; 2017-02-22)
PROC: 5A1221Z Performance of Cardiac Output, Continuous (ICD-10-PCS; 2017-03-02)
PROC: 30233K1 Transfusion of Nonautologous Frozen Plasma into Peripheral Vein, Percutaneous Approach (ICD-10-PCS; 2017-03-02)
PROC: 02UJ0JZ Supplement Tricuspid Valve with Synthetic Substitute, Open Approach (ICD-10-PCS; 2017-03-02 14:00)
PROC: 06BP4ZZ Excision of Right Saphenous Vein, Percutaneous Endoscopic Approach (ICD-10-PCS; 2017-03-02 14:00)
PROC: 0W993ZZ Drainage of Right Pleural Cavity, Percutaneous Approach (ICD-10-PCS; 2017-03-08)
DX: I08.3 Combined rheumatic disorders of mitral, aortic and tricuspid valves (principal); I46.9 Cardiac arrest, cause unspecified; I50.33 Acute on chronic diastolic (congestive) heart failure; N17.9 Acute kidney failure, unspecified; J90 Pleural effusion, not elsewhere classified; L03.116 Cellulitis of left lower limb; D62 Acute posthemorrhagic anemia; I25.82 Chronic total occlusion of coronary artery; I25.10 Atherosclerotic heart disease of native coronary artery without angina pectoris; K21.9 Gastro-esophageal reflux disease without esophagitis; E03.9 Hypothyroidism, unspecified; J45.909 Unspecified asthma, uncomplicated; E78.00 Pure hypercholesterolemia, unspecified; F17.210 Nicotine dependence, cigarettes, uncomplicated; E66.9 Obesity, unspecified; Z68.32 Body mass index [BMI] 32.0-32.9, adult; Z92.3 Personal history of irradiation; Z85.71 Personal history of Hodgkin lymphoma; Z86.718 Personal history of other venous thrombosis and embolism; Z86.711 Personal history of pulmonary embolism; Z82.49 Family history of ischemic heart disease and other diseases of the circulatory system; Z98.890 Other specified postprocedural states; Z79.899 Other long term (current) drug therapy; Z90.710 Acquired absence of both cervix and uterus; I11.0 Hypertensive heart disease with heart failure
CPT/HCPCS: 31720; 32555; 36415; 71010; 71020; 71260; 80048; 80053; 80069; 81001; 82330; 82803; 82805; 82947; 82962; 83036; 83540; 83550; 83735; 84132; 84295; 85014; 85018; 85025; 85347; 85384; 85390; 85576; 85576-59; 85610; 85730; 86850; 86900; 86901; 86920; 87641; 88304; 88305; 88311; 92950; 93005; 93312; 93320; 93325; 93460; 93970; 94002; 94640; 94660; 94667; 94668; 94770; 97116-GP; 97161-GP; 97164-GP; 97165-GO; 97168-GO; 99152; 99153; A9270-GY; C1713; C1769; C1887; C1894; C8929; C9113; J0330; J0690; J1644; J1940; J2150; J2250; J2370; J2440; J2720; J2795; J2930; J3010; J3475; J3480; P9045; P9047; P9059; Q9957; Q9967